=== PATIENT | male | born 1985 | race Caucasian/White ===

== ENCOUNTER 2017-09-26 08:54 | Emergency (ER) | payer OTHER ==
[2017-09-26] MEDS: IPRATRPIUM/ALBUTEROL 0.5/2.5MG 3 ML NEBU. NEB (09:21)
[2017-09-26 09:55] LABS: INFLUENZA A PATIENT POSITIVE (NEGATIVE); INFLUENZA B PATIENT NEGATIVE (NEGATIVE); OBC FLU VALID
== END 2017-09-26 10:21 | disposition home or self-care (01) ==
LOC: ER 10:21
DX: J09.X2 Influenza due to identified novel influenza A virus with other respiratory manifestations (principal)
CPT/HCPCS: 71046; 87804; 87804-59; 94640; 99285-25; J7620

== ENCOUNTER 2021-06-14 04:50 | Inpatient (IN) | payer OTHER ==
[~2021-06-14] VITALS: Ht 185.4 cm; Wt 104.3 kg
[~2021-06-14 04:50] MED LIST: ALBU2.5V8 INH; HYDR5SUS PO; OSEL75CA PO
[2021-06-14 05:18] LABS: BILIRUBIN,URINE NEGATIVE (NEG); CLARITY,URINE CLEAR; COLOR,URINE YELLOW; NITRITE,URINE NEGATIVE (NEG); PH,URINE 6.5 (<5.0-8.0); PROTEIN,URINE NEGATIVE (NEG-TRACE); UROBILINOGEN,URINE 0.2 mg/dL (0.2 mg/dL)
[2021-06-14 05:26] LABS: BACTERIA,URINE 0 /HPF (0-FEW); RBC,URINE 0 /HPF (0-2); WBC,URINE 0 /HPF (0-4)
[2021-06-14] MEDS ORDERED: MORPHINE SULFATE 4 MG/ML INJ. IVP ONE (06:00)
[2021-06-14] MEDS ORDERED: ONDANSETRON PF 4 MG/2 ML VIAL. IVP ONE (06:00)
[2021-06-14] MEDS ORDERED: CONTRAST GIVEN. MC PRN (06:15)
[2021-06-14 06:19] LABS: BASO % 1 % (0-3); EOS # 0.1 x10^3/uL (0.0-0.7); EOS % 1 % (0-3); HEMATOCRIT 40.7 % (39.0-53.0); HEMOGLOBIN 13.9 g/dL (13.0-17.5); LYMPH # 1.5 x10^3/uL (1.0-4.8); LYMPH % 19 % (24-48); MEAN CORPUSCULAR HEMOGLOBIN 29 pg (25-35); MEAN CORPUSCULAR HGB CONC 34 g/dL (31-37); MEAN CORPUSCULAR VOLUME 84 fL (79-100); MONO # 0.9 x10^3/uL (0.0-1.1); MONO % 11 % (0-9); NEUT # 5.2 x10^3/uL (1.8-7.7); NEUT % 68 % (31-73); PLATELET COUNT 188 x10^3/uL (140-400); RED BLOOD COUNT 4.82 x10^6/uL (4.30-5.70); RED CELL DISTRIBUTION WIDTH 13.6 % (11.5-14.5); WHITE BLOOD COUNT 7.7 x10^3/uL (4.0-11.0)
[2021-06-14 06:27] LABS: CREATININE 0.9 mg/dL (0.7-1.3); GFR 96.6
[2021-06-14] MEDS ORDERED: IOHEXOL 300 MG/ML 100ML VIAL. IV ONE (06:30)
[2021-06-14 06:32] LABS: ALBUMIN 3.9 g/dL (3.4-5.0); TOTAL BILIRUBIN 0.6 mg/dL (0.2-1.0); TOTAL PROTEIN 7.8 g/dL (6.4-8.2)
--- NOTE | 2021-06-14 07:07 | RAD ---
CT abdomen pelvis with contrast dated 06/14/2021. No comparison available. CLINICAL INDICATION: Pain. TECHNIQUE: Contiguous axial imaging the abdomen pelvis performed following the intravenous administration of 75 cc Omnipaque 300. One or more of the following individualized dose reduction techniques were utilized for this examinat ion: 1. Automated exposure control 2. Adjustment of the mA and/or kV according to patient size 3. Use of iterative reconstruction technique. FINDINGS: Limited images of lung bases show some mild patchy and linear opacity in the lower lobes, likely atel ectasis. Heart size within normal limits. No pleural or pericardial effusion. The main portal vein is somewhat enlarged and shows lack of contrast enhancement. There are prominent venous collaterals at the lyn hepatis. There is reconstitution of flow at the level of the SMV. Th e splenic vein is patent distally. There is inflammatory stranding adjacent to the pancreatic head an d uncinate process and along the celiac axis and yln hepatis. The pancreatic body and tail are unre markable. No pseudocyst. Liver is homogeneous. No apparent hepatic mass. Gallbladder unremarkable. Spleen is upper limits of n ormal in size. Adrenal glands and kidneys are unremarkable. No hydronephrosis. Unopacified GI tract normal in caliber and contour. No bowel wall thickening. No ascites or lymphaden opathy. The appendix is not clearly identified. No inflammatory changes in the right lower quadrant. Abdominal aorta normal in caliber. 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 Images of the pelvis show nondistended urinary bladder. Prostate gland mildly enlarged. No free fluid or pelvic lymphadenopathy. Bone windows show no acute findings. Multilevel spondylosis. IMPRESSION: 1. Findings consistent with portal vein thrombosis with early cavernous transformation. 2. There is ill-definition of the pancreatic head and uncinate process with inflammatory stranding in the region. This could be edematous changes related to the portal vein thrombosis. Acute pancreatiti s is another consideration. Underlying pancreatic mass cannot be excluded. Correlate with laboratory values. Follow-up imaging recommended. 3. Otherwise no acute findings. 4. Mild patchy bibasilar opacity, likely scar or atelectasis. Electronically signed by: Gurpreet Layne MD (06/14/2021 7:05 AM) [facility]
--- NOTE | 2021-06-14 07:28 | PHYS DOC ---
Past Medical History Past Medical History: Other Additional Past Medical Histor: vp global shunt, heart murmur Past Surgical History: Appendectomy Additional Past Surgical Histo: vp global shunt, hernia, skin graft, TUBES BX EARS Smoking Status: Never Smoker Alcohol Use: Occasionally Drug Use: None General Adult EDM: Chief Complaint: ABDOMINAL PAIN HPI: HPI: Patient is a 35 year old male here with report of 2 weeks of generalized mid and lower abdominal pain, also with diffuse mid to low back pain. The back pain and abdominal pain or not mutually exclusive. He denies any specific injury or trauma. He denies any pain but reports nausea. He denies constipation or diarrhea. He denies urinary symptoms. He denies fever chills or weight loss. Denies chest pain or shortness of breath initially, however later in the ED course he tells me he was short of breath a few weeks ago. This is currently resolved. He also reports history of right lower extremity DVT which sounds like was an unprovoked DVT, was diagnosed by ultrasound. He denies having a thrombophilia work-up. He was treated with Xarelto for a year. This was several years ago, and he is not currently anticoagulated. He has not seen his primary care physician for this pain yet. The pain has worsened over the last 24 hours so he decided to come to the emergency department today. Review of Systems: Review of Systems: Constitutional: Denies fever or chills. [] Eyes: Denies change in visual acuity. [] HENT: Denies nasal congestion or sore throat. [] Respiratory: Denies cough or shortness of breath. [] Cardiovascular: Denies chest pain or edema. [] GI: Reports abdominal pain and nausea. Denies constipation or diarrhea. : Denies urinary symptoms. Musculoskeletal: Generalized back pain. Denies lower extremity pain or joint pain. Integument: Denies rash. [] Neurologic: Denies headache, focal weakness or sensory changes. [] Endocrine: Denies polyuria or polydipsia. [] Lymphatic: Denies swollen glands. [] Psychiatric: Denies depression or anxiety. [] Heart Score: C/O Chest Pain: No Risk Factors: Risk Factors: DM, Current or recent (<one month) smoker, HTN, HLP, family history of CAD, obesity. Risk Scores: Score 0 - 3: 2.5% MACE over next 6 weeks - Discharge Home Score 4 - 6: 20.3% MACE over next 6 weeks - Admit for Clinical Observation Score 7 - 10: 72.7% MACE over next 6 weeks - Early Invasive Strategies Current Medications: Current Medications Medications (Trade) Dose Ordered Sig/Ziyad Start Time Stop Time Status Last Admin Dose Admin Info (CONTRAST GIVEN -- Rx MONITORING) 1 each PRN DAILY PRN 06/14/21 06:15 06/16/21 06:14 Iohexol (Omnipaque 300 Mg/ml) 75 ml 1X ONCE 06/14/21 06:30 06/14/21 06:31 DC 06/14/21 06:47 75 ML Morphine Sulfate (Morphine Sulfate) 4 mg 1X ONCE 06/14/21 06:00 06/14/21 06:01 DC 06/14/21 06:13 4 MG Ondansetron HCl (Zofran) 4 mg 1X ONCE 06/14/21 06:00 06/14/21 06:01 DC 06/14/21 06:13 4 MG Allergies: Allergies: Allergies Coded Allergies Type Severity Reaction Last Updated Verified No Known Drug Allergies 11/26/13 No Physical Exam: PE: Constitutional: Well developed, well nourished, no acute distress, non-toxic appearance. [] HENT: Normocephalic, atraumatic, bilateral external ears normal, oropharynx moist, no oral exudates, nose normal. [] Eyes: PERRLA, EOMI, conjunctiva normal, no discharge. [] Neck: Normal range of motion, no tenderness, supple, no stridor. [] Cardiovascular:Heart rate regular rhythm, no murmur [] Lungs & Thorax: Bilateral breath sounds clear to auscultation [] Abdomen: Bowel sounds normal, soft, no tenderness, no masses, no pulsatile masses. No CVA tenderness. No flank or abdominal ecchymoses. No surgical abdominal findings. Skin: Warm, dry, no erythema, no rash. [] Back: No tenderness, no CVA tenderness. [] Extremities: No tenderness, no cyanosis, no clubbing, ROM intact, no edema. [] Neurologic: Alert and oriented X 3, normal motor function, normal sensory function, no focal deficits noted. [] Psychologic: Affect normal, judgement normal, mood normal. [] Current Patient Data: Labs: Laboratory Tests Test 06/14/21 05:05 06/14/21 06:07 Urine Collection Type Unknown Urine Color Yellow Urine Clarity Clear Urine pH 6.5 (<5.0-8.0) Urine Specific [place] 1.025 (1.000-1.030) Urine Protein Negative mg/dL (NEG-TRACE) Urine Glucose (UA) Negative mg/dL (NEG) Urine Ketones (Stick) Negative mg/dL (NEG) Urine Blood Negative (NEG) Urine Nitrite Negative (NEG) Urine Bilirubin Negative (NEG) Urine Urobilinogen Dipstick 0.2 mg/dL (0.2 mg/dL) Urine Leukocyte Esterase Negative (NEG) Urine RBC 0 /HPF (0-2) Urine WBC 0 /HPF (0-4) Urine Squamous Epithelial Cells Occ /LPF Urine Bacteria 0 /HPF (0-FEW) Urine Mucus Slight /LPF White Blood Count 7.7 x10^3/uL (4.0-11.0) Red Blood Count 4.82 x10^6/uL (4.30-5.70) Hemoglobin 13.9 g/dL (13.0-17.5) Hematocrit 40.7 % (39.0-53.0) Mean Corpuscular Volume 84 fL (79-100) Mean Corpuscular Hemoglobin 29 pg (25-35) Mean Corpuscular Hemoglobin Concent 34 g/dL (31-37) Red Cell Distribution Width 13.6 % (11.5-14.5) Platelet Count 188 x10^3/uL (140-400) Neutrophils (%) (Auto) 68 % (31-73) Lymphocytes (%) (Auto) 19 % (24-48) L Monocytes (%) (Auto) 11 % (0-9) H Eosinophils (%) (Auto) 1 % (0-3) Basophils (%) (Auto) 1 % (0-3) Neutrophils # (Auto) 5.2 x10^3/uL (1.8-7.7) Lymphocytes # (Auto) 1.5 x10^3/uL (1.0-4.8) Monocytes # (Auto) 0.9 x10^3/uL (0.0-1.1) Eosinophils # (Auto) 0.1 x10^3/uL (0.0-0.7) Basophils # (Auto) 0.0 x10^3/uL (0.0-0.2) Sodium Level 134 mmol/L (136-145) L Potassium Level 4.0 mmol/L (3.5-5.1) Chloride Level 101 mmol/L (98-107) Carbon Dioxide Level 28 mmol/L (21-32) Anion Gap 5 (6-14) L Blood Urea Nitrogen 18 mg/dL (8-26) Creatinine 0.9 mg/dL (0.7-1.3) Estimated GFR (Cockcroft-Gault) 96.6 BUN/Creatinine Ratio 20 (6-20) Glucose Level 113 mg/dL (70-99) H Calcium Level 9.0 mg/dL (8.5-10.1) Total Bilirubin 0.6 mg/dL (0.2-1.0) Aspartate Amino Transferase (AST) 39 U/L (15-37) H Alanine Aminotransferase (ALT) 75 U/L (16-63) H Alkaline Phosphatase 92 U/L (46-116) Total Protein 7.8 g/dL (6.4-8.2) Albumin 3.9 g/dL (3.4-5.0) Albumin/Globulin Ratio 1.0 (1.0-1.7) Lipase 43 U/L (73-393) L Laboratory Tests 06/14/21 06:07 Laboratory Tests 06/14/21 06:07 Vital Signs: Vital Signs Date Time Temp Pulse Resp B/P (MAP) Pulse Ox O2 Delivery O2 Flow Rate FiO2 06/14/21 06:24 84 13 134/78 (96) 93 Room Air 06/14/21 05:00 98.5 98.5 EKG: EKG: [] Radiology/Procedures: Radiology/Procedures: IMAGING REPORT Signed PATIENT: CHARLIE COLLINS ACCOUNT: [id number] : 1985 LOCATION: ER AGE: 35 SEX: M EXAM STATUS: REG ER ORD. PHYSICIAN: LEONARD MITCHELL DO REASON: abdominal pain, back pain PROCEDURE: CT ABD PELV W/ IV CONTRST ONLY CT abdomen pelvis with contrast dated 06/14/2021. No comparison available. CLINICAL INDICATION: Pain. TECHNIQUE: Contiguous axial imaging the abdomen pelvis performed following the intravenous administration of 75 cc Omnipaque 300. One or more of the following individualized dose reduction techniques were utilized for this examination: 1. Automated exposure control 2. Adjustment of the mA and/or kV according to patient size 3. Use of iterative reconstruction technique. FINDINGS: Limited images of lung bases show some mild patchy and linear opacity in the lower lobes, likely atelectasis. Heart size within normal limits. No pleural or pericardial effusion. The main portal vein is somewhat enlarged and shows lack of contrast enhancement. There are prominent venous collaterals at the lyn hepatis. There is reconstitution of flow at the level of the SMV. The splenic vein is patent distally. There is inflammatory stranding adjacent to the pancreatic head and uncinate process and along the celiac axis and lyn hepatis. The pancreatic body and tail are unremarkable. No pseudocyst. Liver is homogeneous. No apparent hepatic mass. Gallbladder unremarkable. Spleen is upper limits of normal in size. Adrenal glands and kidneys are unremarkable. No hydronephrosis. Unopacified GI tract normal in caliber and contour. No bowel wall thickening. No ascites or lymphadenopathy. The appendix is not clearly identified. No inflammatory changes in the right lower quadrant. Abdominal aorta normal in caliber. 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 Images of the pelvis show nondistended urinary bladder. Prostate gland mildly enlarged. No free fluid or pelvic lymphadenopathy. Bone windows show no acute findings. Multilevel spondylosis. IMPRESSION: 1. Findings consistent with portal vein thrombosis with early cavernous transformation. 2. There is ill-definition of the pancreatic head and uncinate process with inflammatory stranding in the region. This could be edematous changes related to the portal vein thrombosis. Acute pancreatitis is another consideration. Underlying pancreatic mass cannot be excluded. Correlate with laboratory values. Follow-up imaging recommended. 3. Otherwise no acute findings. 4. Mild patchy bibasilar opacity, likely scar or atelectasis. Electronically signed by: Gurpreet Layne MD (06/14/2021 7:05 AM) [facility] [place] and SIGNED BY: GURPREET LAYNE MD Course & Med Decision Making: Course & Med Decision Making Pertinent Labs and Imaging studies reviewed. (See chart for details) Patient is given IV morphine for pain. He is resting much more comfortably. He reports he still uncomfortable, but declines further pain medicine at this time. I have ordered IV heparin. I discussed the findings, differential diagnosis and plan of care with the patient. I suspect strongly that he has an underlying thrombophilia, and may very well require lifelong anticoagulation. I have explained my recommendation for admission. He will need to see hematology services urgently. He is comfortable with the plan for admission. He is accepted for admission by Dr. Saleem. Fernando Disclaimer: Fernando Disclaimer: This electronic medical record was generated, in whole or in part, using a voice recognition dictation system. Departure Departure Impression: Primary Impression: Portal vein thrombosis Additional Impressions: Generalized abdominal pain Back pain Disposition: ADMITTED INPATIENT Admitting Physician: DAINA Condition: STABLE Referrals: MOLLY VORA (PCP) LEONARD MITCHELL DO Jun 14, 2021 07:28
[2021-06-14] MEDS ORDERED: HEPARIN for IV BOLUS 10,000 UNIT/10 ML VIAL. IV ONE (07:30)
[2021-06-14] MEDS ORDERED: IV NORMAL SALINE 1000ML BAG 1,000 ML IV ONE (08:15)
[2021-06-14] MEDS ORDERED: ONDANSETRON PF 4 MG/2 ML VIAL. IVP PRN ×2 (08:15→13:30)
[2021-06-14] MEDS: MORPHINE SULFATE 4 MG/ML INJ. IVP PRN ×2 (08:17→11:26)
[2021-06-14] MEDS: HEPARIN 25,000UTS/250ML PREMIX 250 ML IV PRN ×2 (08:33→22:13)
--- NOTE | 2021-06-14 09:27 | PDOC1 ---
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 Patient had abdominal pain couple weeks ago that resolved spontaneously. There are no exacerbating or alleviating factors. Denies any weight loss, nausea vomiting, dysuria, hematuria, hematemesis, fevers or chills. He does endorse some chest pain that happened a couple weeks ago and resolved spontaneously as well. Denies any palpitations or syncope. His history of his DVT he thought might have been provoked by wrestling. He did have a tender calf pain at the time. He was treated for Xarelto for a year and stopped. He has not been anticoagulated since that time. Past Medical/Surgical History: PMH/PSH: Past Medical History: global vp creative + content marketing shunt, heart murmur Past Surgical History: Appendectomy, global vp creative + content marketing shunt, hernia, skin graft, TUBES BX EARS Allergies: Allergies: Coded Allergies: No Known Drug Allergies (Unverified , 11/26/13) Family History: Family History: Reviewed with no relevant findings. No history of clotting or bleeding disorders in the family, no strokes or diabetes or heart disease. Social History: Social History: Smoking Status: Never Smoker Alcohol Use: Occasionally Drug Use: None Current Medications: Current Medications Current Medications Morphine Sulfate (Morphine Sulfate) 4 mg 1X ONCE IVP Last administered on 06/14/21at 06:13; Start 06/14/21 at 06:00; Stop 06/14/21 at 06:01; Status DC Ondansetron HCl (Zofran) 4 mg 1X ONCE IVP Last administered on 06/14/21at 06:13; Start 06/14/21 at 06:00; Stop 06/14/21 at 06:01; Status DC Iohexol (Omnipaque 300 Mg/ml) 75 ml 1X ONCE IV Last administered on 06/14/21at 06:47; Start 06/14/21 at 06:30; Stop 06/14/21 at 06:31; Status DC Info (CONTRAST GIVEN -- Rx MONITORING) 1 each PRN DAILY PRN MC SEE COMMENTS; Start 06/14/21 at 06:15; Stop 06/16/21 at 06:14 Heparin Sodium (Porcine) (Heparin Sodium) 4,000 unit 1X ONCE IV Last administered on 06/14/21at 08:22; Start 06/14/21 at 07:30; Stop 06/14/21 at 07:37; Status DC Ondansetron HCl (Zofran) 4 mg PRN Q8HRS PRN IVP NAUSEA/VOMITING; Start 06/14/21 at 08:15; Stop 06/15/21 at 08:14 Morphine Sulfate (Morphine Sulfate) 4 mg PRN Q2HR PRN IVP PAIN Last administered on 06/14/21at 08:17; Start 06/14/21 at 08:15; Stop 06/15/21 at 08:14 Fentanyl Citrate (Fentanyl 2ml Vial) 50 mcg PRN Q1HR PRN IVP PAIN; Start 06/14/21 at 08:15; Stop 06/15/21 at 08:14 Sodium Chloride 1,000 ml @ 100 mls/hr 1X ONCE IV Last administered on 06/14/21at 08:15; Start 06/14/21 at 08:15; Stop 06/14/21 at 18:14 Heparin Sodium/ Dextrose 250 ml @ 17.44 mls/ hr CONT PRN IV SEE I/O RECORD Last administered on 06/14/21at 08:33; Start 06/14/21 at 08:07 Active Scripts Active Hydrocodone-Chlorpheniram Susp (Hydrocodone/Chlorphen Polis) 5 Ml Mervat.er.12h 5 Ml PO PRN Q12HR PRN Proair Hfa Inhaler (Albuterol Sulfate) 8.5 Gm Hfa.aer.ad 1 Puff INH PRN Q6HRS PRN Tamiflu (Oseltamivir Phosphate) 75 Mg Capsule 1 Cap PO BID ROS: Review of Systems Review of System REVIEW OF SYSTEMS: GENERAL: Denies weakness SKIN: No bruising, hair changes or rashes. EYES: No blurred, double or loss of vision. NOSE AND THROAT: No history of nosebleeds, hoarseness or sore throat. HEART: No history of palpitations, chest pain or shortness of breath on exertion. LUNGS: Denies cough, hemoptysis, wheezing or shortness of breath. GASTROINTESTINAL: Positive for abdominal pain and low back pain GENITOURINARY: No history of frequency, urgency, hesitancy or nocturia. NEUROLOGIC: Denies history of numbness, tingling, or tremor. PSYCHIATRIC: No history of panic, anxiety or depression. ENDOCRINE: No history of heat or cold intolerance, polyuria or polydipsia. EXTREMITIES: Denies joint pain, pain on walking or stiffness. Physical Exam: Vital Signs: Vital Signs Date Time Temp Pulse Resp B/P (MAP) Pulse Ox O2 Delivery O2 Flow Rate FiO2 06/14/21 08:17 16 95 Room Air 06/14/21 07:52 82 146/98 (114) 06/14/21 05:00 98.5 98.5 Physcial Exam: General: Well developed, well nourished, no acute distress, well appearing HEENT: Pupils equally round and reactive to light, EOMI, no discharge, normal conjunctiva Neck: Supple, no nuchal rigidity, no JVD, trachea midline, no tenderness Cardiac: RRR, no murmurs, no gallops, no rubs Chest/Lungs: CTAB, no wheeze, no rhonchi, no crackles Abdomen: soft, non-distended, no guarding, no peritoneal signs, non-tender Back: No tenderness Extremities: no edema, pulses intact, non-tender,capillary refill <3 sec bilateral upper and lower extremities, Neuro: Alert and oriented x 4, no focal deficits, normal speech Labs: Labs: Laboratory Tests Test 06/14/21 05:05 06/14/21 06:07 Urine Collection Type Unknown Urine Color Yellow Urine Clarity Clear Urine pH 6.5 (<5.0-8.0) Urine Specific [place] 1.025 (1.000-1.030) Urine Protein Negative mg/dL (NEG-TRACE) Urine Glucose (UA) Negative mg/dL (NEG) Urine Ketones (Stick) Negative mg/dL (NEG) Urine Blood Negative (NEG) Urine Nitrite Negative (NEG) Urine Bilirubin Negative (NEG) Urine Urobilinogen Dipstick 0.2 mg/dL (0.2 mg/dL) Urine Leukocyte Esterase Negative (NEG) Urine RBC 0 /HPF (0-2) Urine WBC 0 /HPF (0-4) Urine Squamous Epithelial Cells Occ /LPF Urine Bacteria 0 /HPF (0-FEW) Urine Mucus Slight /LPF White Blood Count 7.7 x10^3/uL (4.0-11.0) Red Blood Count 4.82 x10^6/uL (4.30-5.70) Hemoglobin 13.9 g/dL (13.0-17.5) Hematocrit 40.7 % (39.0-53.0) Mean Corpuscular Volume 84 fL (79-100) Mean Corpuscular Hemoglobin 29 pg (25-35) Mean Corpuscular Hemoglobin Concent 34 g/dL (31-37) Red Cell Distribution Width 13.6 % (11.5-14.5) Platelet Count 188 x10^3/uL (140-400) Neutrophils (%) (Auto) 68 % (31-73) Lymphocytes (%) (Auto) 19 % (24-48) Monocytes (%) (Auto) 11 % (0-9) Eosinophils (%) (Auto) 1 % (0-3) Basophils (%) (Auto) 1 % (0-3) Neutrophils # (Auto) 5.2 x10^3/uL (1.8-7.7) Lymphocytes # (Auto) 1.5 x10^3/uL (1.0-4.8) Monocytes # (Auto) 0.9 x10^3/uL (0.0-1.1) Eosinophils # (Auto) 0.1 x10^3/uL (0.0-0.7) Basophils # (Auto) 0.0 x10^3/uL (0.0-0.2) Sodium Level 134 mmol/L (136-145) Potassium Level 4.0 mmol/L (3.5-5.1) Chloride Level 101 mmol/L (98-107) Carbon Dioxide Level 28 mmol/L (21-32) Anion Gap 5 (6-14) Blood Urea Nitrogen 18 mg/dL (8-26) Creatinine 0.9 mg/dL (0.7-1.3) Estimated GFR (Cockcroft-Gault) 96.6 BUN/Creatinine Ratio 20 (6-20) Glucose Level 113 mg/dL (70-99) Calcium Level 9.0 mg/dL (8.5-10.1) Total Bilirubin 0.6 mg/dL (0.2-1.0) Aspartate Amino Transf (AST/SGOT) 39 U/L (15-37) Alanine Aminotransferase (ALT/SGPT) 75 U/L (16-63) Alkaline Phosphatase 92 U/L (46-116) Total Protein 7.8 g/dL (6.4-8.2) Albumin 3.9 g/dL (3.4-5.0) Albumin/Globulin Ratio 1.0 (1.0-1.7) Lipase 43 U/L (73-393) Laboratory Tests Test 06/14/21 05:05 06/14/21 06:07 Urine Collection Type Unknown Urine Color Yellow Urine Clarity Clear Urine pH 6.5 (<5.0-8.0) Urine Specific [place] 1.025 (1.000-1.030) Urine Protein Negative mg/dL (NEG-TRACE) Urine Glucose (UA) Negative mg/dL (NEG) Urine Ketones (Stick) Negative mg/dL (NEG) Urine Blood Negative (NEG) Urine Nitrite Negative (NEG) Urine Bilirubin Negative (NEG) Urine Urobilinogen Dipstick 0.2 mg/dL (0.2 mg/dL) Urine Leukocyte Esterase Negative (NEG) Urine RBC 0 /HPF (0-2) Urine WBC 0 /HPF (0-4) Urine Squamous Epithelial Cells Occ /LPF Urine Bacteria 0 /HPF (0-FEW) Urine Mucus Slight /LPF White Blood Count 7.7 x10^3/uL (4.0-11.0) Red Blood Count 4.82 x10^6/uL (4.30-5.70) Hemoglobin 13.9 g/dL (13.0-17.5) Hematocrit 40.7 % (39.0-53.0) Mean Corpuscular Volume 84 fL (79-100) Mean Corpuscular Hemoglobin 29 pg (25-35) Mean Corpuscular Hemoglobin Concent 34 g/dL (31-37) Red Cell Distribution Width 13.6 % (11.5-14.5) Platelet Count 188 x10^3/uL (140-400) Neutrophils (%) (Auto) 68 % (31-73) Lymphocytes (%) (Auto) 19 % (24-48) Monocytes (%) (Auto) 11 % (0-9) Eosinophils (%) (Auto) 1 % (0-3) Basophils (%) (Auto) 1 % (0-3) Neutrophils # (Auto) 5.2 x10^3/uL (1.8-7.7) Lymphocytes # (Auto) 1.5 x10^3/uL (1.0-4.8) Monocytes # (Auto) 0.9 x10^3/uL (0.0-1.1) Eosinophils # (Auto) 0.1 x10^3/uL (0.0-0.7) Basophils # (Auto) 0.0 x10^3/uL (0.0-0.2) Sodium Level 134 mmol/L (136-145) Potassium Level 4.0 mmol/L (3.5-5.1) Chloride Level 101 mmol/L (98-107) Carbon Dioxide Level 28 mmol/L (21-32) Anion Gap 5 (6-14) Blood Urea Nitrogen 18 mg/dL (8-26) Creatinine 0.9 mg/dL (0.7-1.3) Estimated GFR (Cockcroft-Gault) 96.6 BUN/Creatinine Ratio 20 (6-20) Glucose Level 113 mg/dL (70-99) Calcium Level 9.0 mg/dL (8.5-10.1) Total Bilirubin 0.6 mg/dL (0.2-1.0) Aspartate Amino Transf (AST/SGOT) 39 U/L (15-37) Alanine Aminotransferase (ALT/SGPT) 75 U/L (16-63) Alkaline Phosphatase 92 U/L (46-116) Total Protein 7.8 g/dL (6.4-8.2) Albumin 3.9 g/dL (3.4-5.0) Albumin/Globulin Ratio 1.0 (1.0-1.7) Lipase 43 U/L (73-393) Images: Images PROCEDURE: CT ABD PELV W/ IV CONTRST ONLY IMPRESSION: 1. Findings consistent with portal vein thrombosis with early cavernous transformation. 2. There is ill-definition of the pancreatic head and uncinate process with inflammatory stranding in the region. This could be edematous changes related to the portal vein thrombosis. Acute pancreatitis is another consideration. Underlying pancreatic mass cannot be excluded. Correlate with laboratory values. Follow-up imaging recommended. 3. Otherwise no acute findings. 4. Mild patchy bibasilar opacity, likely scar or atelectasis. Assessment/Plan Assessment/Plan Acute abdominal pain secondary to portal vein thrombosis, possible pancreatitis Transaminitis Mild hyponatremia Obesity class I History of cerebral palsy, mild no obvious focal deficits Admit to hospitalist service for further management Vascular surgery consult Pending EKG and troponins Continue heparin drip Pending lipid panel Continue heparin drip for DVT prophylaxis Protonix GI prophylaxis ADA diet CODE STATUS full Discussed with RN and SW Disposition inpatient management as above DPOA: Melly Nettles, parent Justifications for Admission Other Justification SOPHIE MARQUEZ MD Jun 14, 2021 09:27
[2021-06-14] MEDS: fentaNYL PF VIAL 100 MCG/2 ML VIAL IVP PRN ×2 (09:52→13:50)
[2021-06-14 10:30] VITALS: BP 136/90
[2021-06-14 11:16] LABS: C-REACTIVE PROTEIN 64.7 mg/L (0-3.3)
[2021-06-14 11:18] LABS: CHOLESTEROL/HDL RATIO 4.8
[2021-06-14] MEDS ORDERED: DOCUSATE SODIUM 100 MG CAPSULE. PO PRN (13:30)
[2021-06-14] MEDS ORDERED: ACETAMINOPHEN 325 MG TABLET. PO PRN (13:30)
[2021-06-14] MEDS ORDERED: PROCHLORPERAZINE 10 MG/2 ML VIAL. IV PRN (13:30)
[2021-06-14] MEDS ORDERED: DEXTROSE 50% 25 GM / 50ML DISP.SYRIN. IV PRN (13:30)
[2021-06-14] MEDS ORDERED: MORPHINE SULFATE 2 MG/ML INJ. IV PRN (13:30)
[2021-06-14 15:00] VITALS: BP 129/87
[2021-06-14] MEDS: HYDROcodone/APAP 5/325MG 1 TAB TABLET PO PRN ×2 (16:10→22:05)
[2021-06-14] MEDS ORDERED: HEPARIN for IV BOLUS 10,000 UNIT/10 ML VIAL. IV PRN ×2 (18:00)
[2021-06-14 19:41] VITALS: BP 130/88
[2021-06-14] MEDS: MORPHINE SULFATE 2 MG/ML INJ. IVP PRN ×2 (19:54→23:22)
[2021-06-14] MEDS: ZOLPIDEM 5 MG TABLET. PO PRN (22:05)
[2021-06-14] MEDS: LORazepam 0.5 MG TABLET PO PRN (22:05)
[2021-06-14 23:12] VITALS: BP 133/89
[2021-06-15 03:50] VITALS: BP 115/82
[2021-06-15] MEDS: MORPHINE SULFATE 2 MG/ML INJ. IVP PRN ×3 (04:13→08:56)
[2021-06-15 04:20] LABS: BASO % 0 % (0-3); EOS # 0.1 x10^3/uL (0.0-0.7); EOS % 1 % (0-3); HEMATOCRIT 39.8 % (39.0-53.0); HEMOGLOBIN 13.7 g/dL (13.0-17.5); LYMPH # 2.2 x10^3/uL (1.0-4.8); LYMPH % 23 % (24-48); MEAN CORPUSCULAR HEMOGLOBIN 30 pg (25-35); MEAN CORPUSCULAR HGB CONC 34 g/dL (31-37); MEAN CORPUSCULAR VOLUME 86 fL (79-100); MONO # 1.4 x10^3/uL (0.0-1.1); MONO % 14 % (0-9); NEUT # 6.2 x10^3/uL (1.8-7.7); NEUT % 62 % (31-73); PLATELET COUNT 185 x10^3/uL (140-400); RED BLOOD COUNT 4.64 x10^6/uL (4.30-5.70); RED CELL DISTRIBUTION WIDTH 13.4 % (11.5-14.5); WHITE BLOOD COUNT 9.9 x10^3/uL (4.0-11.0)
[2021-06-15 05:14] LABS: CALCIUM 8.7 mg/dL (8.5-10.1); GFR 85.5; MAGNESIUM 2.3 mg/dL (1.8-2.4); PHOSPHORUS 3.6 mg/dL (2.6-4.7); POTASSIUM 3.9 mmol/L (3.5-5.1)
[2021-06-15 07:00] VITALS: BP 127/75
[2021-06-15] MEDS: HYDROcodone/APAP 5/325MG 1 TAB TABLET PO PRN (10:11)
[2021-06-15] MEDS: APIXABAN 5 MG TABLET. PO SCH ×2 (10:11→20:55)
[2021-06-15 11:00] VITALS: BP 142/95
--- NOTE | 2021-06-15 11:15 | NUR ---
PATIENT ALERT AND VERBALLY RESPONSIVE, MOTHER AT THE BEDSIDE, PATIENT VOICED C/O CHEST PAIN (NEW ONSET) DESCRIBES PRESSURE AND TIGHTNESS, WILL INFORM MD AND ORDER STAT EKG AT THIS TIME.
--- NOTE | 2021-06-15 11:31 | PDOC ---
[employer] PROGRESS NOTE Date of Service DOS: DATE: 06/15/21 TIME: 11:25 Chief Complaint Chief Complaint Acute abdominal pain secondary to portal vein thrombosis, possible pancreatitis Transaminitis Mild hyponatremia Obesity class I History of cerebral palsy, mild no obvious focal deficits Pending repeat liver enzymes Vascular surgery consult Pending EKG and troponins Continue heparin drip, will transition to Eliquis today if there is no planned procedures in the next 24 hours. Pending lipid panel Continue heparin drip for DVT prophylaxis Protonix GI prophylaxis ADA diet CODE STATUS full Discussed with RN and SW Disposition inpatient management as above DPOA: Melly Nettles, parent History of Present Illness History of Present Illness 35-year-old male with past medical history of right DVT, [employer] shunt, 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 Patient had abdominal pain couple weeks ago that resolved spontaneously. There are no exacerbating or alleviating factors. Denies any weight loss, nausea vomiting, dysuria, hematuria, hematemesis, fevers or chills. He does endorse some chest pain that happened a couple weeks ago and resolved spontaneously as well. Denies any palpitations or syncope. His history of his DVT he thought might have been provoked by wrestling. He did have a tender calf pain at the time. He was treated for Xarelto for a year and stopped. He has not been anticoagulated since that time. 06/15/2021 No acute events overnight. Patient continues to have abdominal pain and e pigastric tenderness upon my exam. Patient required morphine this morning and has not had breakfast yet due to abdominal pain. Denies any bloody stools are given a bowel movement yet. Patient also complained of chest pain which I obtained an EKG this morning without any acute ST elevations or troponins that were elevated. We will plan to keep patient another day for pain control and general surgery evaluation. I will order a abdominal ultrasound duplex to evaluate flow through the portal vein. Note, lactic acid is normal. Of note, I have also discussed the case with vascular surgery they had recommended a general surgery consult because there was no surgical intervention from their standpoint except possibly stenting which can be done with interventional radiology. Vitals/I&O Vitals/I&O: Vital Signs Date Time Temp Pulse Resp B/P (MAP) Pulse Ox O2 Delivery O2 Flow Rate FiO2 06/15/21 10:11 19 93 Room Air 06/15/21 07:00 98.1 105 127/75 (92) 98.1 I & O 06/14/21 06/14/21 06/15/21 15:00 23:00 07:00 Intake Total 560 ml Output Total 725 ml Balance -725 ml 560 ml Physical Exam General: Alert, Oriented X3, Cooperative Heart: Regular rate Lungs: Clear Abdomen: Other (Epigastric tenderness) Skin: No significant lesion Labs Labs: Laboratory Tests Test 06/14/21 14:35 06/14/21 21:48 06/15/21 03:20 Heparin Anti-Xa Act, Unfractionated 0.22 IU/mL (0.30-0.70) 0.46 IU/mL (0.30-0.70) 0.40 IU/mL (0.30-0.70) White Blood Count 9.9 x10^3/uL (4.0-11.0) Red Blood Count 4.64 x10^6/uL (4.30-5.70) Hemoglobin 13.7 g/dL (13.0-17.5) Hematocrit 39.8 % (39.0-53.0) Mean Corpuscular Volume 86 fL (79-100) Mean Corpuscular Hemoglobin 30 pg (25-35) Mean Corpuscular Hemoglobin Concent 34 g/dL (31-37) Red Cell Distribution Width 13.4 % (11.5-14.5) Platelet Count 185 x10^3/uL (140-400) Neutrophils (%) (Auto) 62 % (31-73) Lymphocytes (%) (Auto) 23 % (24-48) Monocytes (%) (Auto) 14 % (0-9) Eosinophils (%) (Auto) 1 % (0-3) Basophils (%) (Auto) 0 % (0-3) Neutrophils # (Auto) 6.2 x10^3/uL (1.8-7.7) Lymphocytes # (Auto) 2.2 x10^3/uL (1.0-4.8) Monocytes # (Auto) 1.4 x10^3/uL (0.0-1.1) Eosinophils # (Auto) 0.1 x10^3/uL (0.0-0.7) Basophils # (Auto) 0.0 x10^3/uL (0.0-0.2) Sodium Level 136 mmol/L (136-145) Potassium Level 3.9 mmol/L (3.5-5.1) Chloride Level 100 mmol/L (98-107) Carbon Dioxide Level 27 mmol/L (21-32) Anion Gap 9 (6-14) Blood Urea Nitrogen 17 mg/dL (8-26) Creatinine 1.0 mg/dL (0.7-1.3) Estimated GFR (Cockcroft-Gault) 85.5 Glucose Level 105 mg/dL (70-99) Calcium Level 8.7 mg/dL (8.5-10.1) Phosphorus Level 3.6 mg/dL (2.6-4.7) Magnesium Level 2.3 mg/dL (1.8-2.4) Assessment and Plan Assessmemt and Plan Problems Medical Problems: (1) Back pain Status: Acute (2) Generalized abdominal pain Status: Acute (3) Portal vein thrombosis Status: Acute Comment Review of Relevant I have reviewed the following items eva (where applicable) has been applied. Medications: Current Medications Medications (Trade) Dose Ordered Sig/Ziyad Route PRN Reason Start Time Stop Time Status Last Admin Dose Admin Lorazepam (Ativan) 0.5 mg PRN Q6HRS PRN PO ANXIETY / AGITATION 06/14/21 13:30 06/14/21 22:05 Acetaminophen/ Hydrocodone Bitart (Lortab 5/325) 1 tab PRN Q4HRS PRN PO MODERATE PAIN 4-6 06/14/21 13:30 06/15/21 10:11 Morphine Sulfate (Morphine Sulfate) 2 mg PRN Q2HR PRN IVP SEVERE PAIN 7-10 06/14/21 13:30 06/15/21 13:29 06/15/21 08:56 Zolpidem Tartrate (Ambien) 2.5 mg PRN QHS PRN PO INSOMNIA 06/14/21 13:30 06/14/21 22:05 Heparin Sodium (Porcine) (Heparin Sodium) 1,550 unit PRN Q6HRS PRN IV FOR UFH LEVEL 0.2 - 0.29 06/14/21 18:00 06/15/21 08:21 DC 06/14/21 18:14 Apixaban (Eliquis) 10 mg BID PO 06/15/21 09:00 06/21/21 21:01 06/15/21 10:11 Justifications for Admission Other Justification Portal vein thrombosis SOPHIE MARQUEZ MD Jun 15, 2021 11:31
[2021-06-15 12:11] LABS: ALBUMIN 3.6 g/dL (3.4-5.0); DIRECT BILIRUBIN 0.2 mg/dL (0.0-0.2); TOTAL BILIRUBIN 0.8 mg/dL (0.2-1.0); TOTAL PROTEIN 7.5 g/dL (6.4-8.2)
[2021-06-15] MEDS: IV NORMAL SALINE 1000ML BAG 1,000 ML IV SCH (13:30)
[2021-06-15] MEDS ORDERED: NALOXONE 0.4 MG/ML VIAL. IV PRN (13:30)
--- NOTE | 2021-06-15 13:47 | PDOC2 ---
CONSULT Date of Consult Date of Consult DATE: 06/15/21 TIME: 13:41 Reason for Consult Reason for Consult: Portal vein thrombosis/abd pain Current Problem List Problem List Problems Medical Problems: (1) Back pain Status: Acute (2) Generalized abdominal pain Status: Acute (3) Portal vein thrombosis Status: Acute Current Medications Current Medications Current Medications Morphine Sulfate (Morphine Sulfate) 4 mg 1X ONCE IVP Last administered on 06/14/21at 06:13; Start 06/14/21 at 06:00; Stop 06/14/21 at 06:01; Status DC Ondansetron HCl (Zofran) 4 mg 1X ONCE IVP Last administered on 06/14/21at 06:13; Start 06/14/21 at 06:00; Stop 06/14/21 at 06:01; Status DC Iohexol (Omnipaque 300 Mg/ml) 75 ml 1X ONCE IV Last administered on 06/14/21at 06:47; Start 06/14/21 at 06:30; Stop 06/14/21 at 06:31; Status DC Info (CONTRAST GIVEN -- Rx MONITORING) 1 each PRN DAILY PRN MC SEE COMMENTS; Start 06/14/21 at 06:15; Stop 06/16/21 at 06:14 Heparin Sodium (Porcine) (Heparin Sodium) 4,000 unit 1X ONCE IV Last administered on 06/14/21at 08:22; Start 06/14/21 at 07:30; Stop 06/14/21 at 07:37; Status DC Ondansetron HCl (Zofran) 4 mg PRN Q8HRS PRN IVP NAUSEA/VOMITING; Start 06/14/21 at 08:15; Stop 06/14/21 at 13:47; Status DC Morphine Sulfate (Morphine Sulfate) 4 mg PRN Q2HR PRN IVP PAIN Last administered on 06/14/21at 11:26; Start 06/14/21 at 08:15; Stop 06/14/21 at 13:48; Status DC Fentanyl Citrate (Fentanyl 2ml Vial) 50 mcg PRN Q1HR PRN IVP PAIN Last administered on 06/14/21at 13:50; Start 06/14/21 at 08:15; Stop 06/15/21 at 08:14; Status DC Sodium Chloride 1,000 ml @ 100 mls/hr 1X ONCE IV Last administered on 06/14/21at 08:15; Start 06/14/21 at 08:15; Stop 06/14/21 at 18:14; Status DC Heparin Sodium/ Dextrose 250 ml @ 17.44 mls/ hr CONT PRN IV SEE I/O RECORD Last administered on 06/14/21at 22:13; Start 06/14/21 at 08:07; Stop 06/15/21 at 08:21; Status DC Sennosides (Senna) 17.2 mg PRN BID PRN PO CONSTIPATION; Start 06/14/21 at 13:30 Docusate Sodium (Colace) 100 mg PRN DAILY PRN PO HARD STOOLS; Start 06/14/21 at 13:30 Ondansetron HCl (Zofran) 4 mg PRN Q6HRS PRN IVP NAUSEA/VOMITING, 1st CHOICE; Start 06/14/21 at 13:30 Dextrose (Dextrose 50%-Water Syringe) 12.5 gm PRN Q15MIN PRN IV SEE COMMENTS; Start 06/14/21 at 13:30 Acetaminophen (Tylenol) 650 mg PRN Q4HRS PRN PO TEMP OVER 100.4F OR MILD PAIN; Start 06/14/21 at 13:30 Lorazepam (Ativan) 0.5 mg PRN Q6HRS PRN PO ANXIETY / AGITATION Last administered on 06/14/21at 22:05; Start 06/14/21 at 13:30 Lorazepam (Ativan Inj) 0.25 mg PRN Q4HRS PRN IV ANXIETY / AGITATION; Start 06/14/21 at 13:30 Acetaminophen/ Hydrocodone Bitart (Lortab 5/325) 1 tab PRN Q4HRS PRN PO MODERATE PAIN 4-6 Last administered on 06/15/21at 10:11; Start 06/14/21 at 13:30 Morphine Sulfate (Morphine Sulfate) 1 mg PRN Q1HR PRN IV PAIN; Start 06/14/21 at 13:30; Stop 06/15/21 at 13:26; Status DC Morphine Sulfate (Morphine Sulfate) 2 mg PRN Q2HR PRN IVP SEVERE PAIN 7-10 Last administered on 06/15/21at 08:56; Start 06/14/21 at 13:30; Stop 06/15/21 at 13:26; Status DC Prochlorperazine Edisylate (Compazine) 10 mg PRN Q6HRS PRN IV NAUSEA/VOMITING, 2nd CHOICE; Start 06/14/21 at 13:30 Zolpidem Tartrate (Ambien) 2.5 mg PRN QHS PRN PO INSOMNIA Last administered on 06/14/21at 22:05; Start 06/14/21 at 13:30 Heparin Sodium (Porcine) (Heparin Sodium) 3,150 unit PRN Q6HRS PRN IV FOR UFH LEVEL LESS THAN 0.2; Start 06/14/21 at 18:00; Stop 06/15/21 at 08:21; Status DC Heparin Sodium (Porcine) (Heparin Sodium) 1,550 unit PRN Q6HRS PRN IV FOR UFH LEVEL 0.2 - 0.29 Last administered on 06/14/21at 18:14; Start 06/14/21 at 18:00; Stop 06/15/21 at 08:21; Status DC Apixaban (Eliquis) 10 mg BID PO Last administered on 06/15/21at 10:11; Start 06/15/21 at 09:00; Stop 06/21/21 at 21:01 Apixaban (Eliquis) 5 mg BID PO ; Start 06/22/21 at 09:00 Naloxone HCl (Narcan) 0.4 mg PRN Q2MIN PRN IV SEE INSTRUCTIONS; Start 06/15/21 at 13:30 Sodium Chloride 1,000 ml @ 25 mls/hr Q24H IV ; Start 06/15/21 at 13:30 Morphine Sulfate 30 ml @ 0 mls/hr CONT PRN PRN IV PER PROTOCOL; Start 06/15/21 at 13:30 Potassium Chloride/Dextrose/ Sod Cl 1,000 ml @ 100 mls/hr Q10H IV ; Start 06/15/21 at 13:30 Active Scripts Active Hydrocodone-Chlorpheniram Susp (Hydrocodone/Chlorphen Polis) 5 Ml Mervat.er.12h 5 Ml PO PRN Q12HR PRN Proair Hfa Inhaler (Albuterol Sulfate) 8.5 Gm Hfa.aer.ad 1 Puff INH PRN Q6HRS PRN Tamiflu (Oseltamivir Phosphate) 75 Mg Capsule 1 Cap PO BID Allergies Allergies: Coded Allergies: No Known Drug Allergies (Unverified , 11/26/13) Vitals VITALS Vital Signs Date Time Temp Pulse Resp B/P (MAP) Pulse Ox O2 Delivery O2 Flow Rate FiO2 06/15/21 10:50 20 94 Room Air 06/15/21 07:00 98.1 105 127/75 (92) 98.1 Labs Labs Laboratory Tests Test 06/14/21 05:05 06/14/21 06:07 06/14/21 10:39 06/14/21 14:35 Urine Collection Type Unknown Urine Color Yellow Urine Clarity Clear Urine pH 6.5 (<5.0-8.0) Urine Specific [facility] 1.025 (1.000-1.030) Urine Protein Negative mg/dL (NEG-TRACE) Urine Glucose (UA) Negative mg/dL (NEG) Urine Ketones (Stick) Negative mg/dL (NEG) Urine Blood Negative (NEG) Urine Nitrite Negative (NEG) Urine Bilirubin Negative (NEG) Urine Urobilinogen Dipstick 0.2 mg/dL (0.2 mg/dL) Urine Leukocyte Esterase Negative (NEG) Urine RBC 0 /HPF (0-2) Urine WBC 0 /HPF (0-4) Urine Squamous Epithelial Cells Occ /LPF Urine Bacteria 0 /HPF (0-FEW) Urine Mucus Slight /LPF White Blood Count 7.7 x10^3/uL (4.0-11.0) Red Blood Count 4.82 x10^6/uL (4.30-5.70) Hemoglobin 13.9 g/dL (13.0-17.5) Hematocrit 40.7 % (39.0-53.0) Mean Corpuscular Volume 84 fL (79-100) Mean Corpuscular Hemoglobin 29 pg (25-35) Mean Corpuscular Hemoglobin Concent 34 g/dL (31-37) Red Cell Distribution Width 13.6 % (11.5-14.5) Platelet Count 188 x10^3/uL (140-400) Neutrophils (%) (Auto) 68 % (31-73) Lymphocytes (%) (Auto) 19 % (24-48) Monocytes (%) (Auto) 11 % (0-9) Eosinophils (%) (Auto) 1 % (0-3) Basophils (%) (Auto) 1 % (0-3) Neutrophils # (Auto) 5.2 x10^3/uL (1.8-7.7) Lymphocytes # (Auto) 1.5 x10^3/uL (1.0-4.8) Monocytes # (Auto) 0.9 x10^3/uL (0.0-1.1) Eosinophils # (Auto) 0.1 x10^3/uL (0.0-0.7) Basophils # (Auto) 0.0 x10^3/uL (0.0-0.2) Sodium Level 134 mmol/L (136-145) Potassium Level 4.0 mmol/L (3.5-5.1) Chloride Level 101 mmol/L (98-107) Carbon Dioxide Level 28 mmol/L (21-32) Anion Gap 5 (6-14) Blood Urea Nitrogen 18 mg/dL (8-26) Creatinine 0.9 mg/dL (0.7-1.3) Estimated GFR (Cockcroft-Gault) 96.6 BUN/Creatinine Ratio 20 (6-20) Glucose Level 113 mg/dL (70-99) Calcium Level 9.0 mg/dL (8.5-10.1) Total Bilirubin 0.6 mg/dL (0.2-1.0) Aspartate Amino Transf (AST/SGOT) 39 U/L (15-37) Alanine Aminotransferase (ALT/SGPT) 75 U/L (16-63) Alkaline Phosphatase 92 U/L (46-116) Troponin I Quantitative < 0.017 ng/mL (0.000-0.055) C-Reactive Protein, Quantitative 64.7 mg/L (0-3.3) Total Protein 7.8 g/dL (6.4-8.2) Albumin 3.9 g/dL (3.4-5.0) Albumin/Globulin Ratio 1.0 (1.0-1.7) Triglycerides Level 68 mg/dL (0-150) Cholesterol Level 140 mg/dL (0-200) LDL Cholesterol, Calculated 97 mg/dL (0-100) VLDL Cholesterol, Calculated 14 mg/dL (0-40) Non-HDL Cholesterol Calculated 111 mg/dL (0-129) HDL Cholesterol 29 mg/dL (40-60) Cholesterol/HDL Ratio 4.8 Lipase 43 U/L (73-393) Lactic Acid Level 0.7 mmol/L (0.4-2.0) Heparin Anti-Xa Act, Unfractionated 0.22 IU/mL (0.30-0.70) Test 06/14/21 21:48 06/15/21 03:20 Heparin Anti-Xa Act, Unfractionated 0.46 IU/mL (0.30-0.70) 0.40 IU/mL (0.30-0.70) White Blood Count 9.9 x10^3/uL (4.0-11.0) Red Blood Count 4.64 x10^6/uL (4.30-5.70) Hemoglobin 13.7 g/dL (13.0-17.5) Hematocrit 39.8 % (39.0-53.0) Mean Corpuscular Volume 86 fL (79-100) Mean Corpuscular Hemoglobin 30 pg (25-35) Mean Corpuscular Hemoglobin Concent 34 g/dL (31-37) Red Cell Distribution Width 13.4 % (11.5-14.5) Platelet Count 185 x10^3/uL (140-400) Neutrophils (%) (Auto) 62 % (31-73) Lymphocytes (%) (Auto) 23 % (24-48) Monocytes (%) (Auto) 14 % (0-9) Eosinophils (%) (Auto) 1 % (0-3) Basophils (%) (Auto) 0 % (0-3) Neutrophils # (Auto) 6.2 x10^3/uL (1.8-7.7) Lymphocytes # (Auto) 2.2 x10^3/uL (1.0-4.8) Monocytes # (Auto) 1.4 x10^3/uL (0.0-1.1) Eosinophils # (Auto) 0.1 x10^3/uL (0.0-0.7) Basophils # (Auto) 0.0 x10^3/uL (0.0-0.2) Sodium Level 136 mmol/L (136-145) Potassium Level 3.9 mmol/L (3.5-5.1) Chloride Level 100 mmol/L (98-107) Carbon Dioxide Level 27 mmol/L (21-32) Anion Gap 9 (6-14) Blood Urea Nitrogen 17 mg/dL (8-26) Creatinine 1.0 mg/dL (0.7-1.3) Estimated GFR (Cockcroft-Gault) 85.5 Glucose Level 105 mg/dL (70-99) Calcium Level 8.7 mg/dL (8.5-10.1) Phosphorus Level 3.6 mg/dL (2.6-4.7) Magnesium Level 2.3 mg/dL (1.8-2.4) Total Bilirubin 0.8 mg/dL (0.2-1.0) Direct Bilirubin 0.2 mg/dL (0.0-0.2) Aspartate Amino Transf (AST/SGOT) 23 U/L (15-37) Alanine Aminotransferase (ALT/SGPT) 59 U/L (16-63) Alkaline Phosphatase 80 U/L (46-116) Total Protein 7.5 g/dL (6.4-8.2) Albumin 3.6 g/dL (3.4-5.0) Laboratory Tests Test 06/14/21 14:35 06/14/21 21:48 06/15/21 03:20 Heparin Anti-Xa Act, Unfractionated 0.22 IU/mL (0.30-0.70) 0.46 IU/mL (0.30-0.70) 0.40 IU/mL (0.30-0.70) White Blood Count 9.9 x10^3/uL (4.0-11.0) Red Blood Count 4.64 x10^6/uL (4.30-5.70) Hemoglobin 13.7 g/dL (13.0-17.5) Hematocrit 39.8 % (39.0-53.0) Mean Corpuscular Volume 86 fL (79-100) Mean Corpuscular Hemoglobin 30 pg (25-35) Mean Corpuscular Hemoglobin Concent 34 g/dL (31-37) Red Cell Distribution Width 13.4 % (11.5-14.5) Platelet Count 185 x10^3/uL (140-400) Neutrophils (%) (Auto) 62 % (31-73) Lymphocytes (%) (Auto) 23 % (24-48) Monocytes (%) (Auto) 14 % (0-9) Eosinophils (%) (Auto) 1 % (0-3) Basophils (%) (Auto) 0 % (0-3) Neutrophils # (Auto) 6.2 x10^3/uL (1.8-7.7) Lymphocytes # (Auto) 2.2 x10^3/uL (1.0-4.8) Monocytes # (Auto) 1.4 x10^3/uL (0.0-1.1) Eosinophils # (Auto) 0.1 x10^3/uL (0.0-0.7) Basophils # (Auto) 0.0 x10^3/uL (0.0-0.2) Sodium Level 136 mmol/L (136-145) Potassium Level 3.9 mmol/L (3.5-5.1) Chloride Level 100 mmol/L (98-107) Carbon Dioxide Level 27 mmol/L (21-32) Anion Gap 9 (6-14) Blood Urea Nitrogen 17 mg/dL (8-26) Creatinine 1.0 mg/dL (0.7-1.3) Estimated GFR (Cockcroft-Gault) 85.5 Glucose Level 105 mg/dL (70-99) Calcium Level 8.7 mg/dL (8.5-10.1) Phosphorus Level 3.6 mg/dL (2.6-4.7) Magnesium Level 2.3 mg/dL (1.8-2.4) Total Bilirubin 0.8 mg/dL (0.2-1.0) Direct Bilirubin 0.2 mg/dL (0.0-0.2) Aspartate Amino Transf (AST/SGOT) 23 U/L (15-37) Alanine Aminotransferase (ALT/SGPT) 59 U/L (16-63) Alkaline Phosphatase 80 U/L (46-116) Total Protein 7.5 g/dL (6.4-8.2) Albumin 3.6 g/dL (3.4-5.0) Assessment/Plan Assessment/Plan Abd pain- with portal vein thrombosis with cavernous transformation and history of DVTs. Plan hematology work-up for factor deficiencies watermaster anticoagulation recommended IgG4/AFP/CA 19-9 levels Full ntoe dictated SARKIS SINGLETON MD Jun 15, 2021 13:47
[2021-06-15] MEDS: MORPHINE SULFATE 30 ML IV PRN (14:57)
[2021-06-15 15:00] VITALS: BP 149/98
--- NOTE | 2021-06-15 19:26 | RAD ---
EXAM: Liver Doppler. HISTORY: Portal vein thrombosis. COMPARISON: 06/14/2021. FINDINGS: Grayscale and Doppler analysis of the hepatic vasculature was performed. The main portal vein is occluded. There is no internal flow. The right portal vein is not well visual ized and is thrombosed on CT. The left portal vein is thrombosed proximally on CT but patent more dis tally with normal direction of flow. The main, right and left and hepatic veins are patent. The splenic vein is patent. There is an elevated peak systolic velocity within the hepatic artery at 342 cm/s. The resistive inde x is low at 0.45. IMPRESSION: 1. [place] appearing thrombus within the main, right and proximal left portal vein. Electronically signed by: Adis Garcia MD (06/15/2021 7:24 PM) [facility]
--- NOTE | 2021-06-15 19:27 | PDOC2 ---
CONSULT Date of Consult Date of Consult DATE: 06/15/21 TIME: 19:16 Reason for Consult Reason for Consult: portal vein thrombosis Referring Physician Referring Physician: Dr. Saleem Identification/Chief Complaint Chief Complaint abd pain Source Source: Chart review, Patient History of Present Illness Reason for Visit: 35 yo M with c/o abd pain, about a week. Has gradually been feeling poorly over the past several weeks. Associated loose stools, but no bleeding. Hx of DVT of RLE of unknown cause. Was on anticoagulation, but not currently. Pt with c/o diffuse abd pain. No N/V. 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) Past Surgical History Past Surgical History: Appendectomy Family History Family History: No Significant (no hx of clotting disorders) Social History No ALCOHOL: none Current Problem List Problem List Problems Medical Problems: (1) Back pain Status: Acute (2) Generalized abdominal pain Status: Acute (3) Portal vein thrombosis Status: Acute Current Medications Current Medications Current Medications Morphine Sulfate (Morphine Sulfate) 4 mg 1X ONCE IVP Last administered on 06/14/21at 06:13; Start 06/14/21 at 06:00; Stop 06/14/21 at 06:01; Status DC Ondansetron HCl (Zofran) 4 mg 1X ONCE IVP Last administered on 06/14/21at 06:13; Start 06/14/21 at 06:00; Stop 06/14/21 at 06:01; Status DC Iohexol (Omnipaque 300 Mg/ml) 75 ml 1X ONCE IV Last administered on 06/14/21at 06:47; Start 06/14/21 at 06:30; Stop 06/14/21 at 06:31; Status DC Info (CONTRAST GIVEN -- Rx MONITORING) 1 each PRN DAILY PRN MC SEE COMMENTS; Start 06/14/21 at 06:15; Stop 06/16/21 at 06:14 Heparin Sodium (Porcine) (Heparin Sodium) 4,000 unit 1X ONCE IV Last administered on 06/14/21at 08:22; Start 06/14/21 at 07:30; Stop 06/14/21 at 07:37; Status DC Ondansetron HCl (Zofran) 4 mg PRN Q8HRS PRN IVP NAUSEA/VOMITING; Start 06/14/21 at 08:15; Stop 06/14/21 at 13:47; Status DC Morphine Sulfate (Morphine Sulfate) 4 mg PRN Q2HR PRN IVP PAIN Last administered on 06/14/21at 11:26; Start 06/14/21 at 08:15; Stop 06/14/21 at 13: 48; Status DC Fentanyl Citrate (Fentanyl 2ml Vial) 50 mcg PRN Q1HR PRN IVP PAIN Last administered on 06/14/21at 13:50; Start 06/14/21 at 08:15; Stop 06/15/21 at 08:14; Status DC Sodium Chloride 1,000 ml @ 100 mls/hr 1X ONCE IV Last administered on at 08:15; Start 06/14/21 at 08:15; Stop 06/14/21 at 18:14; Status DC Heparin Sodium/ Dextrose 250 ml @ 17.44 mls/ hr CONT PRN IV SEE I/O RECORD Last administered on 06/14/21at 22:13; Start 06/14/21 at 08:07; Stop 06/15/21 at 08:21; Status DC Sennosides (Senna) 17.2 mg PRN BID PRN PO CONSTIPATION; Start 06/14/21 at 13:30 Docusate Sodium (Colace) 100 mg PRN DAILY PRN PO HARD STOOLS; Start 06/14/21 at 13:30 Ondansetron HCl (Zofran) 4 mg PRN Q6HRS PRN IVP NAUSEA/VOMITING, 1st CHOICE; Start 06/14/21 at 13:30 Dextrose (Dextrose 50%-Water Syringe) 12.5 gm PRN Q15MIN PRN IV SEE COMMENTS; Start 06/14/21 at 13:30 Acetaminophen (Tylenol) 650 mg PRN Q4HRS PRN PO TEMP OVER 100.4F OR MILD PAIN; Start 06/14/21 at 13:30 Lorazepam (Ativan) 0.5 mg PRN Q6HRS PRN PO ANXIETY / AGITATION Last administered on 06/14/21at 22:05; Start 06/14/21 at 13:30 Lorazepam (Ativan Inj) 0.25 mg PRN Q4HRS PRN IV ANXIETY / AGITATION; Start 06/14/21 at 13:30 Acetaminophen/ Hydrocodone Bitart (Lortab 5/325) 1 tab PRN Q4HRS PRN PO MOD ERATE PAIN 4-6 Last administered on 06/15/21at 10:11; Start 06/14/21 at 13:30 Morphine Sulfate (Morphine Sulfate) 1 mg PRN Q1HR PRN IV PAIN; Start 06/14/21 at 13:30; Stop 06/15/21 at 13:26; Status DC Morphine Sulfate (Morphine Sulfate) 2 mg PRN Q2HR PRN IVP SEVERE PAIN 7-10 Last administered on 06/15/21at 08:56; Start 06/14/21 at 13:30; Stop 06/15/21 at 13:26; Status DC Prochlorperazine Edisylate (Compazine) 10 mg PRN Q6HRS PRN IV NAUSEA/VOMITING, 2nd CHOICE; Start 06/14/21 at 13:30 Zolpidem Tartrate (Ambien) 2.5 mg PRN QHS PRN PO INSOMNIA Last administered on 06/14/21at 22:05; Start 06/14/21 at 13:30 Heparin Sodium (Porcine) (Heparin Sodium) 3,150 unit PRN Q6HRS PRN IV FOR UFH LEVEL LESS THAN 0.2; Start 06/14/21 at 18:00; Stop 06/15/21 at 08:21; Status DC Heparin Sodium (Porcine) (Heparin Sodium) 1,550 unit PRN Q6HRS PRN IV FOR UFH LEVEL 0.2 - 0.29 Last administered on 06/14/21at 18:14; Start 06/14/21 at 18:00; Stop 06/15/21 at 08:21; Status DC Apixaban (Eliquis) 10 mg BID PO Last administered on 06/15/21at 10:11; Start 06/15/21 at 09:00; Stop 06/21/21 at 21:01 Apixaban (Eliquis) 5 mg BID PO ; Start 06/22/21 at 09:00 Naloxone HCl (Narcan) 0.4 mg PRN Q2MIN PRN IV SEE INSTRUCTIONS; Start 06/15/21 at 13:30 Sodium Chloride 1,000 ml @ 25 mls/hr Q24H IV Last administered on 06/15/21at 13:30; Start 06/15/21 at 13:30 Morphine Sulfate 30 ml @ 0 mls/hr CONT PRN PRN IV PER PROTOCOL Last administered on 06/15/21at 14:57; Start 06/15/21 at 13:30 Potassium Chloride/Dextrose/ Sod Cl 1,000 ml @ 100 mls/hr Q10H IV ; Start 06/15/21 at 13:30 Active Scripts Active Hydrocodone-Chlorpheniram Susp (Hydrocodone/Chlorphen Polis) 5 Ml Mervat.er.12h 5 Ml PO PRN Q12HR PRN Proair Hfa Inhaler (Albuterol Sulfate) 8.5 Gm Hfa.aer.ad 1 Puff INH PRN Q6HRS PRN Tamiflu (Oseltamivir Phosphate) 75 Mg Capsule 1 Cap PO BID Allergies Allergies: Coded Allergies: No Known Drug Allergies (Unverified , 11/26/13) ROS Gastrointestinal: Yes Abdominal Pain Physical Exam General: Alert, Oriented X3, Cooperative, mild distress HEENT: Atraumatic, Other (mild dysconjugate gaze) Abdomen: Soft, Other (diffuse TTP) Extremities: No clubbing, No cyanosis Skin: No rashes, No breakdown Psych/Mental Status: Mental status NL, Mood NL Vitals VITALS Vital Signs Date Time Temp Pulse Resp B/P (MAP) Pulse Ox O2 Delivery O2 Flow Rate FiO2 06/15/21 15:00 99.2 102 18 149/98 (115) 92 Room Air 99.2 Labs Labs Laboratory Tests Test 06/14/21 05:05 06/14/21 06:07 06/14/21 10:39 06/14/21 14:35 Urine Collection Type Unknown Urine Color Yellow Urine Clarity Clear Urine pH 6.5 (<5.0-8.0) Urine Specific [place] 1.025 (1.000-1.030) Urine Protein Negative mg/dL (NEG-TRACE) Urine Glucose (UA) Negative mg/dL (NEG) Urine Ketones (Stick) Negative mg/dL (NEG) Urine Blood Negative (NEG) Urine Nitrite Negative (NEG) Urine Bilirubin Negative (NEG) Urine Urobilinogen Dipstick 0.2 mg/dL (0.2 mg/dL) Urine Leukocyte Esterase Negative (NEG) Urine RBC 0 /HPF (0-2) Urine WBC 0 /HPF (0-4) Urine Squamous Epithelial Cells Occ /LPF Urine Bacteria 0 /HPF (0-FEW) Urine Mucus Slight /LPF White Blood Count 7.7 x10^3/uL (4.0-11.0) Red Blood Count 4.82 x10^6/uL (4.30-5.70) Hemoglobin 13.9 g/dL (13.0-17.5) Hematocrit 40.7 % (39.0-53.0) Mean Corpuscular Volume 84 fL (79-100) Mean Corpuscular Hemoglobin 29 pg (25-35) Mean Corpuscular Hemoglobin Concent 34 g/dL (31-37) Red Cell Distribution Width 13.6 % (11.5-14.5) Platelet Count 188 x10^3/uL (140-400) Neutrophils (%) (Auto) 68 % (31-73) Lymphocytes (%) (Auto) 19 % (24-48) Monocytes (%) (Auto) 11 % (0-9) Eosinophils (%) (Auto) 1 % (0-3) Basophils (%) (Auto) 1 % (0-3) Neutrophils # (Auto) 5.2 x10^3/uL (1.8-7.7) Lymphocytes # (Auto) 1.5 x10^3/uL (1.0-4.8) Monocytes # (Auto) 0.9 x10^3/uL (0.0-1.1) Eosinophils # (Auto) 0.1 x10^3/uL (0.0-0.7) Basophils # (Auto) 0.0 x10^3/uL (0.0-0.2) Sodium Level 134 mmol/L (136-145) Potassium Level 4.0 mmol/L (3.5-5.1) Chloride Level 101 mmol/L (98-107) Carbon Dioxide Level 28 mmol/L (21-32) Anion Gap 5 (6-14) Blood Urea Nitrogen 18 mg/dL (8-26) Creatinine 0.9 mg/dL (0.7-1.3) Estimated GFR (Cockcroft-Gault) 96.6 BUN/Creatinine Ratio 20 (6-20) Glucose Level 113 mg/dL (70-99) Calcium Level 9.0 mg/dL (8.5-10.1) Total Bilirubin 0.6 mg/dL (0.2-1.0) Aspartate Amino Transf (AST/SGOT) 39 U/L (15-37) Alanine Aminotransferase (ALT/SGPT) 75 U/L (16-63) Alkaline Phosphatase 92 U/L (46-116) Troponin I Quantitative < 0.017 ng/mL (0.000-0.055) C-Reactive Protein, Quantitative 64.7 mg/L (0-3.3) Total Protein 7.8 g/dL (6.4-8.2) Albumin 3.9 g/dL (3.4-5.0) Albumin/Globulin Ratio 1.0 (1.0-1.7) Triglycerides Level 68 mg/dL (0-150) Cholesterol Level 140 mg/dL (0-200) LDL Cholesterol, Calculated 97 mg/dL (0-100) VLDL Cholesterol, Calculated 14 mg/dL (0-40) Non-HDL Cholesterol Calculated 111 mg/dL (0-129) HDL Cholesterol 29 mg/dL (40-60) Cholesterol/HDL Ratio 4.8 Lipase 43 U/L (73-393) Lactic Acid Level 0.7 mmol/L (0.4-2.0) Heparin Anti-Xa Act, Unfractionated 0.22 IU/mL (0.30-0.70) Test 06/14/21 21:48 06/15/21 03:20 Heparin Anti-Xa Act, Unfractionated 0.46 IU/mL (0.30-0.70) 0.40 IU/mL (0.30-0.70) White Blood Count 9.9 x10^3/uL (4.0-11.0) Red Blood Count 4.64 x10^6/uL (4.30-5.70) Hemoglobin 13.7 g/dL (13.0-17.5) Hematocrit 39.8 % (39.0-53.0) Mean Corpuscular Volume 86 fL (79-100) Mean Corpuscular Hemoglobin 30 pg (25-35) Mean Corpuscular Hemoglobin Concent 34 g/dL (31-37) Red Cell Distribution Width 13.4 % (11.5-14.5) Platelet Count 185 x10^3/uL (140-400) Neutrophils (%) (Auto) 62 % (31-73) Lymphocytes (%) (Auto) 23 % (24-48) Monocytes (%) (Auto) 14 % (0-9) Eosinophils (%) (Auto) 1 % (0-3) Basophils (%) (Auto) 0 % (0-3) Neutrophils # (Auto) 6.2 x10^3/uL (1.8-7.7) Lymphocytes # (Auto) 2.2 x10^3/uL (1.0-4.8) Monocytes # (Auto) 1.4 x10^3/uL (0.0-1.1) Eosinophils # (Auto) 0.1 x10^3/uL (0.0-0.7) Basophils # (Auto) 0.0 x10^3/uL (0.0-0.2) Sodium Level 136 mmol/L (136-145) Potassium Level 3.9 mmol/L (3.5-5.1) Chloride Level 100 mmol/L (98-107) Carbon Dioxide Level 27 mmol/L (21-32) Anion Gap 9 (6-14) Blood Urea Nitrogen 17 mg/dL (8-26) Creatinine 1.0 mg/dL (0.7-1.3) Estimated GFR (Cockcroft-Gault) 85.5 Glucose Level 105 mg/dL (70-99) Calcium Level 8.7 mg/dL (8.5-10.1) Phosphorus Level 3.6 mg/dL (2.6-4.7) Magnesium Level 2.3 mg/dL (1.8-2.4) Total Bilirubin 0.8 mg/dL (0.2-1.0) Direct Bilirubin 0.2 mg/dL (0.0-0.2) Aspartate Amino Transf (AST/SGOT) 23 U/L (15-37) Alanine Aminotransferase (ALT/SGPT) 59 U/L (16-63) Alkaline Phosphatase 80 U/L (46-116) Total Protein 7.5 g/dL (6.4-8.2) Albumin 3.6 g/dL (3.4-5.0) Laboratory Tests Test 06/14/21 21:48 06/15/21 03:20 Heparin Anti-Xa Act, Unfractionated 0.46 IU/mL (0.30-0.70) 0.40 IU/mL (0.30-0.70) White Blood Count 9.9 x10^3/uL (4.0-11.0) Red Blood Count 4.64 x10^6/uL (4.30-5.70) Hemoglobin 13.7 g/dL (13.0-17.5) Hematocrit 39.8 % (39.0-53.0) Mean Corpuscular Volume 86 fL (79-100) Mean Corpuscular Hemoglobin 30 pg (25-35) Mean Corpuscular Hemoglobin Concent 34 g/dL (31-37) Red Cell Distribution Width 13.4 % (11.5-14.5) Platelet Count 185 x10^3/uL (140-400) Neutrophils (%) (Auto) 62 % (31-73) Lymphocytes (%) (Auto) 23 % (24-48) Monocytes (%) (Auto) 14 % (0-9) Eosinophils (%) (Auto) 1 % (0-3) Basophils (%) (Auto) 0 % (0-3) Neutrophils # (Auto) 6.2 x10^3/uL (1.8-7.7) Lymphocytes # (Auto) 2.2 x10^3/uL (1.0-4.8) Monocytes # (Auto) 1.4 x10^3/uL (0.0-1.1) Eosinophils # (Auto) 0.1 x10^3/uL (0.0-0.7) Basophils # (Auto) 0.0 x10^3/uL (0.0-0.2) Sodium Level 136 mmol/L (136-145) Potassium Level 3.9 mmol/L (3.5-5.1) Chloride Level 100 mmol/L (98-107) Carbon Dioxide Level 27 mmol/L (21-32) Anion Gap 9 (6-14) Blood Urea Nitrogen 17 mg/dL (8-26) Creatinine 1.0 mg/dL (0.7-1.3) Estimated GFR (Cockcroft-Gault) 85.5 Glucose Level 105 mg/dL (70-99) Calcium Level 8.7 mg/dL (8.5-10.1) Phosphorus Level 3.6 mg/dL (2.6-4.7) Magnesium Level 2.3 mg/dL (1.8-2.4) Total Bilirubin 0.8 mg/dL (0.2-1.0) Direct Bilirubin 0.2 mg/dL (0.0-0.2) Aspartate Amino Transf (AST/SGOT) 23 U/L (15-37) Alanine Aminotransferase (ALT/SGPT) 59 U/L (16-63) Alkaline Phosphatase 80 U/L (46-116) Total Protein 7.5 g/dL (6.4-8.2) Albumin 3.6 g/dL (3.4-5.0) Images Images CT with c/o PV thrombosis with collaterals, no obvious bowel compromise Assessment/Plan Assessment/Plan PV thrombosis agree with anticoagulants will ask IR to comment, but suspect chronic and probably not able to clear appreciate GI involvement, may need to evaluate for bleeding if develops issues, but none currently. will ask hematology to evaluate for causes of coagulopathy. no immediate surgical plans. Thanks for consult! CARLO ORTIZ MD Jun 15, 2021 19:27
[2021-06-15 19:48] VITALS: BP 141/94
[2021-06-15] MEDS: POTASSIUM CL 20MEQ D5-0.45NACL 1,000 ML IV SCH (20:54)
--- NOTE | 2021-06-15 21:29 | CONS ---
DATE OF CONSULTATION: 06/15/2021 GI CONSULTATION REASON FOR CONSULTATION: Abdominal pain, portal vein thrombosis and possible pancreatitis. HISTORY OF PRESENT ILLNESS: A 35-year-old male whose past medical history is significant for DVTs and PSYCHOLOGY LECTURER shunt is admitted to [facility] with worsening abdominal pain, which has been present for the past several weeks. It has lessened for approximately a week and has come back. Subsequent imaging has revealed portal vein thrombosis, early cavernous transformation as well as ill definition of the pancreatic head and uncinate process. The patient does drink alcohol on occasion. Denies any shortness of breath at this time and is without new complaints. PAST MEDICAL HISTORY: Status post appendectomy, PSYCHOLOGY LECTURER shunt, hernia skin graft, history of cerebral palsy. ALLERGIES: None. MEDICATIONS: Presently include Eliquis, morphine, naloxone, zolpidem. SOCIAL HISTORY: He works in [employer] shops. Nonsmoker. Social drinker. FAMILY HISTORY: Noncontributory for DVTs. REVIEW OF SYSTEMS: Per records. PHYSICAL EXAMINATION: VITAL SIGNS: Temp is 96, pulse is 105, respiratory rate 16, blood pressure 127/75, room air is 94%. HEENT: Reveals normocephalic, atraumatic head. Pupils and extraocular muscles not tested. Sclerae are anicteric. NECK: Supple. LUNGS: Clear. CARDIOVASCULAR: Reveals S1 and S2, without S3, S4 or appreciable murmur. ABDOMEN: Reveals a soft abdomen, normal bowel sounds, without appreciable hepatosplenomegaly. There is mild epigastric tenderness to deep palpation. EXTREMITIES: Reveals no cyanosis, clubbing or edema. LABORATORY STUDIES: Sodium 136, potassium 3.8, chloride 100, bicarb 27, BUN 17, creatinine 1.0. Total bili 0.8, direct bili 0.2, AST 20, ALT 59, alk phos of 59. Triglycerides is 65. Hemoglobin 13.7, hematocrit 38.8, white count 8.9 and platelet count is 185,000. 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 Hematologic workup for malignancy and coagulation deficiencies are recommended. 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 He will proceed with an alpha-fetoprotein level, CA 19-9 level and IgG4 level to assess further for pancreatitis and other cause of malignancy. RAN/APRIL/YUSUF DR: [place] TID: [id number]
[2021-06-15 23:21] VITALS: BP 132/85
[2021-06-16 03:39] VITALS: BP 130/87
[2021-06-16] MEDS: MORPHINE SULFATE 30 ML IV PRN ×2 (05:44→22:17)
[2021-06-16 07:00] VITALS: BP 132/88
[2021-06-16 08:47] LABS: BASO % 0 % (0-3); EOS # 0.1 x10^3/uL (0.0-0.7); EOS % 1 % (0-3); HEMATOCRIT 41.5 % (39.0-53.0); LYMPH # 1.8 x10^3/uL (1.0-4.8); LYMPH % 19 % (24-48); MEAN CORPUSCULAR HEMOGLOBIN 29 pg (25-35); MEAN CORPUSCULAR HGB CONC 34 g/dL (31-37); MEAN CORPUSCULAR VOLUME 86 fL (79-100); MONO # 1.4 x10^3/uL (0.0-1.1); MONO % 15 % (0-9); NEUT # 6.2 x10^3/uL (1.8-7.7); NEUT % 65 % (31-73); PLATELET COUNT 212 x10^3/uL (140-400); RED BLOOD COUNT 4.84 x10^6/uL (4.30-5.70); RED CELL DISTRIBUTION WIDTH 13.4 % (11.5-14.5); WHITE BLOOD COUNT 9.5 x10^3/uL (4.0-11.0)
--- NOTE | 2021-06-16 09:04 | PDOC2 ---
Consult: IR Brief Consult S: 35 yo with hx of GENERATOR MAN shunt and prior DVT now presents with several weeks of wo rsening abdominal pain and acute portal vein thrombosis with very early cavernous transformation. No n/v. Was not taking anticoagulants at presentation but is currently on Eliquis. O: No imaging or laboratory evidence of bowel ischemia, mesenteric varices or liver dysfunction. Inflammatory stranding around the PV and pancreas is likely secondary to PVT, however underlying pancreatic pathology cannot be excluded. A: Acute PVT, unprovoked, with evidence of early cavernous transformation. Recommendations: 1. Lifetime anticoagulation given multiple episodes of VTE, at least one unprovoked. Recommend 3 weeks of LMWH followed by transition to DOAC of choice, as LMWH is known to have better anti-inflammatory properties which empirically seems to confer some additional benefit in acute/subacute thrombosis. 2. Hematology referral for hypercoaguability workup. Likely will need to be deferred and/or repeated in 6 months upon clinical resolution of acute phase DVT. 3. Follow-up MRI of the abdomen in 3 - 6 months to exclude underlying pancreatic pathology Thank you for the opportunity to assist in this patient's care. ANIKET JOY MD Jun 16, 2021 09:04
[2021-06-16 09:19] LABS: CALCIUM 9.1 mg/dL (8.5-10.1); CREATININE 0.9 mg/dL (0.7-1.3); GFR 96.6; MAGNESIUM 2.3 mg/dL (1.8-2.4); POTASSIUM 3.6 mmol/L (3.5-5.1)
[2021-06-16] MEDS: APIXABAN 5 MG TABLET. PO SCH ×2 (10:13→22:16)
[2021-06-16] MEDS ORDERED: POLYETHYLENE GLYCOL 3350 17 GM PACKET. PO PRN (10:30)
--- NOTE | 2021-06-16 10:53 | NUR ---
SW following. Discussed with RN, pt from home, room air, regular diet. Pt on a DIAMOND GRADER currently. Multiple consults following. RN advised no SW needs at this time. SW will continue to follow.
[2021-06-16 11:00] VITALS: BP 133/94
--- NOTE | 2021-06-16 11:37 | PDOC ---
Date of Service: DATE: 06/16/21 TIME: 11:28 Subjective: Subjective: Ate something from [employer] for breakfast, ongoing abd pain - using NEPHROLOGY NURSE. Walking around helped to pass gas yesterday. No stool since Fri. No vomiting. Family asks if he could try Miralax. Objective: Objective: IgG, CA19-9, AFP pending. Reviewed IR note - Recommendations: 1. Lifetime anticoagulation given multiple episodes of VTE, at least one un provoked. Recommend 3 weeks of LMWH followed by transition to DOAC of choice, as LMWH is known to have better anti-inflammatory properties which empirically seems to confer some additional benefit in acute/subacute thrombosis. 2. Hematology referral for hypercoaguability workup. Likely will need to be deferred and/or repeated in 6 months upon clinical resolution of acute phase DVT. 3. Follow-up MRI of the abdomen in 3 - 6 months to exclude underlying pancreatic pathology Vital Signs: Vital Signs Date Time Temp Pulse Resp B/P (MAP) Pulse Ox O2 Delivery O2 Flow Rate FiO2 06/16/21 11:00 98.1 110 18 133/94 (107) 94 Room Air 98.1 Labs: Laboratory Tests Test 06/16/21 08:10 White Blood Count 9.5 x10^3/uL Red Blood Count 4.84 x10^6/uL Hemoglobin 14.0 g/dL Hematocrit 41.5 % Mean Corpuscular Volume 86 fL Mean Corpuscular Hemoglobin 29 pg Mean Corpuscular Hemoglobin Concent 34 g/dL Red Cell Distribution Width 13.4 % Platelet Count 212 x10^3/uL Neutrophils (%) (Auto) 65 % Lymphocytes (%) (Auto) 19 % Monocytes (%) (Auto) 15 % Eosinophils (%) (Auto) 1 % Basophils (%) (Auto) 0 % Neutrophils # (Auto) 6.2 x10^3/uL Lymphocytes # (Auto) 1.8 x10^3/uL Monocytes # (Auto) 1.4 x10^3/uL Eosinophils # (Auto) 0.1 x10^3/uL Basophils # (Auto) 0.0 x10^3/uL Heparin Anti-Xa Act, Unfractionated > 1.10 IU/mL Sodium Level 134 mmol/L Potassium Level 3.6 mmol/L Chloride Level 97 mmol/L Carbon Dioxide Level 28 mmol/L Anion Gap 9 Blood Urea Nitrogen 11 mg/dL Creatinine 0.9 mg/dL Estimated GFR (Cockcroft-Gault) 96.6 Glucose Level 105 mg/dL Calcium Level 9.1 mg/dL Magnesium Level 2.3 mg/dL Imaging: CT A/P IMPRESSION: 1. Findings consistent with portal vein thrombosis with early cavernous transformation. 2. There is ill-definition of the pancreatic head and uncinate process with inflammatory stranding in the region. This could be edematous changes related to the portal vein thrombosis. Acute pancreatitis is another consideration. Underlying pancreatic mass cannot be excluded. Correlate with laboratory values. Follow-up imaging recommended. 3. Otherwise no acute findings. 4. Mild patchy bibasilar opacity, likely scar or atelectasis. Abd US IMPRESSION: 1. Bryan appearing thrombus within the main, right and proximal left portal vein. PE: GEN: NAD - resting in chair LUNGS: clear anteriorly HEART: tachycardic ABD: ?mild distention, a few tinkling BS NEURO/PSYCH: A & O 3 A/P: PVT - on Eliquis Abnormal CT - ill-definition of the pancreatic head and uncinate process with inflammatory stranding in the region (could be edematous changes related to the portal vein thrombosis vs acute pancreatitis vs underlying mass) Abd pain, constipation -- Eating regular diet w/ ongoing abdominal pain requiring pain pump. Try Miralax as d/w family, consider additional help for constipation if indicated. Await pending labs. Will review any additional GI recs w/ Dr. Lin. Justicifation of Admission Dx: Justifications for Admission: Justification of Admission Dx: Yes MARGE WILLIAM Jun 16, 2021 11:37
[2021-06-16] MEDS: POTASSIUM CL 20MEQ D5-0.45NACL 1,000 ML IV SCH ×3 (12:34→22:44)
--- NOTE | 2021-06-16 12:51 | PDOC ---
[facility] PROGRESS NOTE Date of Service DOS: DATE: 06/16/21 TIME: 12:48 Chief Complaint Chief Complaint Acute abdominal pain secondary to portal vein thrombosis, possible pancreatitis Transaminitis Mild hyponatremia Obesity class I History of cerebral palsy, mild no obvious focal deficits H/o RLE DVT Pending repeat liver enzymes Vascular surgery consult Pending EKG and troponins Continue heparin drip, will transition to Eliquis today if there is no planned procedures in the next 24 hours. 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 Patient had abdominal pain couple weeks ago that resolved spontaneously. There are no exacerbating or alleviating factors. Denies any weight loss, nausea vomiting, dysuria, hematuria, hematemesis, fevers or chills. He does endorse some chest pain that happened a couple weeks ago and resolved spontaneously as well. Denies any palpitations or syncope. His history of his DVT he thought might have been provoked by wrestling. He did have a tender calf pain at the time. He was treated for Xarelto for a year and stopped. He has not been anticoagulated since that time. 06/15: No acute events overnight. Patient continues to have abdominal pain and epigastric tenderness upon my exam. Patient required morphine this morning and has not had breakfast yet due to abdominal pain. Denies any bloody stools are given a bowel movement yet. Patient also complained of chest pain which I obtained an EKG this morning without any acute ST elevations or troponins that were elevated. We will plan to keep patient another day for pain control and general surgery evaluation. I will order a abdominal ultrasound duplex to evaluate flow through the portal vein. Note, lactic acid is normal. Discussed the case with vascular surgery they had recommended a general surgery consult because there was no surgical intervention from their standpoint except possibly stenting which can be done with interventional radiology. 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 Took miralax for no BM for over 3 days. No SOB or CP. Vitals/I&O Vitals/I&O: Vital Signs Date Time Temp Pulse Resp B/P (MAP) Pulse Ox O2 Delivery O2 Flow Rate FiO2 06/16/21 11:00 98.1 110 18 133/94 (107) 94 Room Air 98.1 I & O 06/15/21 06/15/21 06/16/21 15:00 23:00 07:00 Intake Total 180 ml 210 ml Balance 180 ml 210 ml Physical Exam General: Alert, Oriented X3, Cooperative, mild distress Heart: Regular rate Lungs: Clear Abdomen: Soft, Other (diffuse TTP) Extremities: No clubbing, No cyanosis Skin: No rashes, No breakdown Labs Labs: Laboratory Tests Test 06/16/21 08:10 White Blood Count 9.5 x10^3/uL (4.0-11.0) Red Blood Count 4.84 x10^6/uL (4.30-5.70) Hemoglobin 14.0 g/dL (13.0-17.5) Hematocrit 41.5 % (39.0-53.0) Mean Corpuscular Volume 86 fL (79-100) Mean Corpuscular Hemoglobin 29 pg (25-35) Mean Corpuscular Hemoglobin Concent 34 g/dL (31-37) Red Cell Distribution Width 13.4 % (11.5-14.5) Platelet Count 212 x10^3/uL (140-400) Neutrophils (%) (Auto) 65 % (31-73) Lymphocytes (%) (Auto) 19 % (24-48) Monocytes (%) (Auto) 15 % (0-9) Eosinophils (%) (Auto) 1 % (0-3) Basophils (%) (Auto) 0 % (0-3) Neutrophils # (Auto) 6.2 x10^3/uL (1.8-7.7) Lymphocytes # (Auto) 1.8 x10^3/uL (1.0-4.8) Monocytes # (Auto) 1.4 x10^3/uL (0.0-1.1) Eosinophils # (Auto) 0.1 x10^3/uL (0.0-0.7) Basophils # (Auto) 0.0 x10^3/uL (0.0-0.2) Heparin Anti-Xa Act, Unfractionated > 1.10 IU/mL (0.30-0.70) Sodium Level 134 mmol/L (136-145) Potassium Level 3.6 mmol/L (3.5-5.1) Chloride Level 97 mmol/L (98-107) Carbon Dioxide Level 28 mmol/L (21-32) Anion Gap 9 (6-14) Blood Urea Nitrogen 11 mg/dL (8-26) Creatinine 0.9 mg/dL (0.7-1.3) Estimated GFR (Cockcroft-Gault) 96.6 Glucose Level 105 mg/dL (70-99) Calcium Level 9.1 mg/dL (8.5-10.1) Magnesium Level 2.3 mg/dL (1.8-2.4) Assessment and Plan Assessmemt and Plan Problems Medical Problems: (1) Back pain Status: Acute (2) Generalized abdominal pain Status: Acute (3) Portal vein thrombosis Status: Acute Comment Review of Relevant I have reviewed the following items eva (where applicable) has been applied. Medications: Current Medications Medications (Trade) Dose Ordered Sig/Ziyad Route PRN Reason Start Time Stop Time Status Last Admin Dose Admin Sodium Chloride 1,000 ml @ 25 mls/hr Q24H IV 06/15/21 13:30 06/15/21 13:30 Morphine Sulfate 30 ml @ 0 mls/hr CONT PRN PRN IV PER PROTOCOL 06/15/21 13:30 06/16/21 05:44 Potassium Chloride/Dextrose/ Sod Cl 1,000 ml @ 100 mls/hr Q10H IV 06/15/21 13:30 06/16/21 12:34 Polyethylene Glycol (miraLAX PACKET) 17 gm PRN DAILY PRN PO CONSTIPATION, 1ST CHOICE 06/16/21 10:30 06/16/21 12:35 Justifications for Admission Other Justification Portal vein thrombosis EDGARDO DUGGAN MD Jun 16, 2021 12:51
[2021-06-16] MEDS: IV NORMAL SALINE 1000ML BAG 1,000 ML IV SCH (13:30)
[2021-06-16] MEDS ORDERED: HYDROcodone/APAP 5/325MG 1 TAB TABLET PO PRN (13:45)
[2021-06-16] MEDS ORDERED: BISACODYL 5 MG TABLET.DR. PO PRN (14:45)
[2021-06-16 15:00] VITALS: BP 138/91
[2021-06-16 16:20] LABS: AFPT MARKER 1.7 ng/mL (0.0-8.3)
[2021-06-16 19:00] VITALS: BP 148/92
--- NOTE | 2021-06-16 21:29 | PDOC ---
SURGICAL PROGRESS NOTE DATE: 06/16/21 TIME: 21:27 Subjective Pt seen earlier in the day. Pt with c/o abd pain, but able to ambulate, passing some flatus Vital Signs Vital Signs Date Time Temp Pulse Resp B/P (MAP) Pulse Ox O2 Delivery O2 Flow Rate FiO2 06/16/21 19:00 98.0 110 22 148/92 (110) 93 Room Air 98.0 I&O Intake and Output 06/16/21 07:00 Intake Total 390 ml Balance 390 ml Intake Oral 390 ml # Voids 2 General: Alert, Oriented X3, Cooperative, mild distress Abdomen: Soft, Other (mild diffuse TTP) Labs Laboratory Tests Test 06/14/21 21:48 06/15/21 03:20 06/16/21 08:10 Heparin Anti-Xa Act, Unfractionated 0.46 IU/mL (0.30-0.70) 0.40 IU/mL (0.30-0.70) > 1.10 IU/mL (0.30-0.70) White Blood Count 9.9 x10^3/uL (4.0-11.0) 9.5 x10^3/uL (4.0-11.0) Red Blood Count 4.64 x10^6/uL (4.30-5.70) 4.84 x10^6/uL (4.30-5.70) Hemoglobin 13.7 g/dL (13.0-17.5) 14.0 g/dL (13.0-17.5) Hematocrit 39.8 % (39.0-53.0) 41.5 % (39.0-53.0) Mean Corpuscular Volume 86 fL (79-100) 86 fL (79-100) Mean Corpuscular Hemoglobin 30 pg (25-35) 29 pg (25-35) Mean Corpuscular Hemoglobin Concent 34 g/dL (31-37) 34 g/dL (31-37) Red Cell Distribution Width 13.4 % (11.5-14.5) 13.4 % (11.5-14.5) Platelet Count 185 x10^3/uL (140-400) 212 x10^3/uL (140-400) Neutrophils (%) (Auto) 62 % (31-73) 65 % (31-73) Lymphocytes (%) (Auto) 23 % (24-48) 19 % (24-48) Monocytes (%) (Auto) 14 % (0-9) 15 % (0-9) Eosinophils (%) (Auto) 1 % (0-3) 1 % (0-3) Basophils (%) (Auto) 0 % (0-3) 0 % (0-3) Neutrophils # (Auto) 6.2 x10^3/uL (1.8-7.7) 6.2 x10^3/uL (1.8-7.7) Lymphocytes # (Auto) 2.2 x10^3/uL (1.0-4.8) 1.8 x10^3/uL (1.0-4.8) Monocytes # (Auto) 1.4 x10^3/uL (0.0-1.1) 1.4 x10^3/uL (0.0-1.1) Eosinophils # (Auto) 0.1 x10^3/uL (0.0-0.7) 0.1 x10^3/uL (0.0-0.7) Basophils # (Auto) 0.0 x10^3/uL (0.0-0.2) 0.0 x10^3/uL (0.0-0.2) Sodium Level 136 mmol/L (136-145) 134 mmol/L (136-145) Potassium Level 3.9 mmol/L (3.5-5.1) 3.6 mmol/L (3.5-5.1) Chloride Level 100 mmol/L (98-107) 97 mmol/L (98-107) Carbon Dioxide Level 27 mmol/L (21-32) 28 mmol/L (21-32) Anion Gap 9 (6-14) 9 (6-14) Blood Urea Nitrogen 17 mg/dL (8-26) 11 mg/dL (8-26) Creatinine 1.0 mg/dL (0.7-1.3) 0.9 mg/dL (0.7-1.3) Estimated GFR (Cockcroft-Gault) 85.5 96.6 Glucose Level 105 mg/dL (70-99) 105 mg/dL (70-99) Calcium Level 8.7 mg/dL (8.5-10.1) 9.1 mg/dL (8.5-10.1) Phosphorus Level 3.6 mg/dL (2.6-4.7) Magnesium Level 2.3 mg/dL (1.8-2.4) 2.3 mg/dL (1.8-2.4) Total Bilirubin 0.8 mg/dL (0.2-1.0) Direct Bilirubin 0.2 mg/dL (0.0-0.2) Aspartate Amino Transf (AST/SGOT) 23 U/L (15-37) Alanine Aminotransferase (ALT/SGPT) 59 U/L (16-63) Alkaline Phosphatase 80 U/L (46-116) Total Protein 7.5 g/dL (6.4-8.2) Albumin 3.6 g/dL (3.4-5.0) Tumor Marker Alpha Fetoprotein 1.7 ng/mL (0.0-8.3) Laboratory Tests Test 06/16/21 08:10 White Blood Count 9.5 x10^3/uL (4.0-11.0) Red Blood Count 4.84 x10^6/uL (4.30-5.70) Hemoglobin 14.0 g/dL (13.0-17.5) Hematocrit 41.5 % (39.0-53.0) Mean Corpuscular Volume 86 fL (79-100) Mean Corpuscular Hemoglobin 29 pg (25-35) Mean Corpuscular Hemoglobin Concent 34 g/dL (31-37) Red Cell Distribution Width 13.4 % (11.5-14.5) Platelet Count 212 x10^3/uL (140-400) Neutrophils (%) (Auto) 65 % (31-73) Lymphocytes (%) (Auto) 19 % (24-48) Monocytes (%) (Auto) 15 % (0-9) Eosinophils (%) (Auto) 1 % (0-3) Basophils (%) (Auto) 0 % (0-3) Neutrophils # (Auto) 6.2 x10^3/uL (1.8-7.7) Lymphocytes # (Auto) 1.8 x10^3/uL (1.0-4.8) Monocytes # (Auto) 1.4 x10^3/uL (0.0-1.1) Eosinophils # (Auto) 0.1 x10^3/uL (0.0-0.7) Basophils # (Auto) 0.0 x10^3/uL (0.0-0.2) Heparin Anti-Xa Act, Unfractionated > 1.10 IU/mL (0.30-0.70) Sodium Level 134 mmol/L (136-145) Potassium Level 3.6 mmol/L (3.5-5.1) Chloride Level 97 mmol/L (98-107) Carbon Dioxide Level 28 mmol/L (21-32) Anion Gap 9 (6-14) Blood Urea Nitrogen 11 mg/dL (8-26) Creatinine 0.9 mg/dL (0.7-1.3) Estimated GFR (Cockcroft-Gault) 96.6 Glucose Level 105 mg/dL (70-99) Calcium Level 9.1 mg/dL (8.5-10.1) Magnesium Level 2.3 mg/dL (1.8-2.4) Problem List Problems Medical Problems: (1) Back pain Status: Acute (2) Generalized abdominal pain Status: Acute (3) Portal vein thrombosis Status: Acute Assessment/Plan PVT agree with anticoagulants and w/u no current surgical plan Justicifation of Admission Dx: Justifications for Admission: Justification of Admission Dx: Yes CARLO ORTIZ MD Jun 16, 2021 21:29
[2021-06-16 23:00] VITALS: BP 150/91
[2021-06-17 03:00] VITALS: BP 132/78
[2021-06-17 07:00] VITALS: BP 120/84
--- NOTE | 2021-06-17 07:27 | PDOC ---
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 Patient had abdominal pain couple weeks ago that resolved spontaneously. There are no exacerbating or alleviating factors. Denies any weight loss, nausea vomiting, dysuria, hematuria, hematemesis, fevers or chills. He does endorse some chest pain that happened a couple weeks ago and resolved spontaneously as well. Denies any palpitations or syncope. His history of his DVT he thought might have been provoked by wrestling. He did have a tender calf pain at the time. He was treated for Xarelto for a year and stopped. He has not been anticoagulated since that time. 06/15: No acute events overnight. Patient continues to have abdominal pain and epigastric tenderness upon my exam. Patient required morphine this morning and has not had breakfast yet due to abdominal pain. Denies any bloody stools are given a bowel movement yet. Patient also complained of chest pain which I obtained an EKG this morning without any acute ST elevations or troponins that were elevated. We will plan to keep patient another day for pain control and general surgery evaluation. I will order a abdominal ultrasound duplex to evaluate flow through the portal vein. Note, lactic acid is normal. Discussed the case with vascular surgery they had recommended a general surgery consult because there was no surgical intervention from their standpoint except possibly stenting which can be done with interventional radiology. 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 Took miralax for no BM for over 3 days. No SOB or CP. Slept intermittently overnight. Ice pack helping with his back pain asking for Lidoderm patch. No BM as of yet though he is passing flatus. Pain is still being controlled with CANVASS MANAGER did not receive p.o. pain medication overnight. Vitals/I&O Vitals/I&O: Vital Signs Date Time Temp Pulse Resp B/P (MAP) Pulse Ox O2 Delivery O2 Flow Rate FiO2 06/17/21 03:00 98.3 120 20 132/78 (96) 94 Room Air 98.3 I & O 06/16/21 06/16/21 06/17/21 15:00 23:00 07:00 Intake Total 400 ml 240 ml 240 ml Balance 400 ml 240 ml 240 ml Physical Exam General: Alert, Oriented X3, Cooperative, mild distress Heart: Regular rate Lungs: Clear Abdomen: Soft, Other (mild diffuse TTP) Extremities: No clubbing, No cyanosis Skin: No rashes, No breakdown Labs Labs: Laboratory Tests Test 06/16/21 08:10 White Blood Count 9.5 x10^3/uL (4.0-11.0) Red Blood Count 4.84 x10^6/uL (4.30-5.70) Hemoglobin 14.0 g/dL (13.0-17.5) Hematocrit 41.5 % (39.0-53.0) Mean Corpuscular Volume 86 fL (79-100) Mean Corpuscular Hemoglobin 29 pg (25-35) Mean Corpuscular Hemoglobin Concent 34 g/dL (31-37) Red Cell Distribution Width 13.4 % (11.5-14.5) Platelet Count 212 x10^3/uL (140-400) Neutrophils (%) (Auto) 65 % (31-73) Lymphocytes (%) (Auto) 19 % (24-48) Monocytes (%) (Auto) 15 % (0-9) Eosinophils (%) (Auto) 1 % (0-3) Basophils (%) (Auto) 0 % (0-3) Neutrophils # (Auto) 6.2 x10^3/uL (1.8-7.7) Lymphocytes # (Auto) 1.8 x10^3/uL (1.0-4.8) Monocytes # (Auto) 1.4 x10^3/uL (0.0-1.1) Eosinophils # (Auto) 0.1 x10^3/uL (0.0-0.7) Basophils # (Auto) 0.0 x10^3/uL (0.0-0.2) Heparin Anti-Xa Act, Unfractionated > 1.10 IU/mL (0.30-0.70) Sodium Level 134 mmol/L (136-145) Potassium Level 3.6 mmol/L (3.5-5.1) Chloride Level 97 mmol/L (98-107) Carbon Dioxide Level 28 mmol/L (21-32) Anion Gap 9 (6-14) Blood Urea Nitrogen 11 mg/dL (8-26) Creatinine 0.9 mg/dL (0.7-1.3) Estimated GFR (Cockcroft-Gault) 96.6 Glucose Level 105 mg/dL (70-99) Calcium Level 9.1 mg/dL (8.5-10.1) Magnesium Level 2.3 mg/dL (1.8-2.4) Assessment and Plan Assessmemt and Plan Problems Medical Problems: (1) Back pain Status: Acute (2) Generalized abdominal pain Status: Acute (3) Portal vein thrombosis Status: Acute Comment Review of Relevant I have reviewed the following items eva (where applicable) has been applied. Medications: Current Medications Medications (Trade) Dose Ordered Sig/Ziyad Route PRN Reason Start Time Stop Time Status Last Admin Dose Admin Polyethylene Glycol (miraLAX PACKET) 17 gm PRN DAILY PRN PO CONSTIPATION, 1ST CHOICE 06/16/21 10:30 06/16/21 12:35 Bisacodyl (Dulcolax Tab) 5 mg PRN DAILY PRN PO CONSTIPATION - 3RD CHOICE 06/16/21 14:45 06/16/21 15:04 Justifications for Admission Other Justification Portal vein thrombosis EDGARDO DUGGAN MD Jun 17, 2021 07:27
[2021-06-17 08:21] LABS: BASO % 0 % (0-3); EOS % 1 % (0-3); HEMATOCRIT 39.5 % (39.0-53.0); HEMOGLOBIN 13.5 g/dL (13.0-17.5); LYMPH # 1.6 x10^3/uL (1.0-4.8); LYMPH % 17 % (24-48); MEAN CORPUSCULAR HEMOGLOBIN 29 pg (25-35); MEAN CORPUSCULAR HGB CONC 34 g/dL (31-37); MEAN CORPUSCULAR VOLUME 86 fL (79-100); MONO # 1.5 x10^3/uL (0.0-1.1); MONO % 16 % (0-9); NEUT # 6.4 x10^3/uL (1.8-7.7); NEUT % 67 % (31-73); PLATELET COUNT 214 x10^3/uL (140-400); RED CELL DISTRIBUTION WIDTH 13.6 % (11.5-14.5); WHITE BLOOD COUNT 9.6 x10^3/uL (4.0-11.0)
[2021-06-17] MEDS: POTASSIUM CL 20MEQ D5-0.45NACL 1,000 ML IV SCH ×2 (08:51→19:03)
[2021-06-17] MEDS: PSYLLIUM HUSK (SUGAR FREE) 1 PKT PACKET PO SCH ×2 (08:54→20:46)
[2021-06-17] MEDS: APIXABAN 5 MG TABLET. PO SCH ×2 (08:54→20:42)
[2021-06-17] MEDS: POLYETHYLENE GLYCOL 3350 17 GM PACKET. PO SCH (08:54)
[2021-06-17] MEDS: SENNOSIDES 8.6 MG TABLET PO PRN (08:54)
[2021-06-17] MEDS: HYDROcodone/APAP 5/325MG 1 TAB TABLET PO PRN ×3 (08:54→20:41)
[2021-06-17] MEDS ORDERED: MAGNESIUM CITRATE 296 ML SOLUTION. PO ONE (09:00)
[2021-06-17] MEDS: SENNOSIDES/DOCUSATE 8.6/50MG TABLET. PO SCH ×2 (09:00→20:42)
[2021-06-17 09:12] LABS: CALCIUM 8.7 mg/dL (8.5-10.1); CREATININE 0.9 mg/dL (0.7-1.3); GFR 96.6; MAGNESIUM 2.3 mg/dL (1.8-2.4); POTASSIUM 4.1 mmol/L (3.5-5.1)
[2021-06-17 10:42] VITALS: BP 139/98
[2021-06-17] MEDS: ANTI-COAG MONITOR BY PHARMACY. MC PRN (11:25)
[2021-06-17] MEDS: LIDOCAINE (700MG/PATCH) PATCH. TD SCH (11:43)
--- NOTE | 2021-06-17 12:27 | PDOC ---
Date of Service: DATE: 06/17/21 TIME: 12:23 Subjective: Subjective: Feels better today, using [employer] less. Passing flatus, no stool. Skipped breakfast. Objective: Vital Signs: Vital Signs Date Time Temp Pulse Resp B/P (MAP) Pulse Ox O2 Delivery O2 Flow Rate FiO2 06/17/21 11:04 Room Air 06/17/21 10:42 98.2 126 20 139/98 (112) 95 98.2 Labs: Laboratory Tests Test 06/17/21 07:20 White Blood Count 9.6 x10^3/uL Red Blood Count 4.60 x10^6/uL Hemoglobin 13.5 g/dL Hematocrit 39.5 % Mean Corpuscular Volume 86 fL Mean Corpuscular Hemoglobin 29 pg Mean Corpuscular Hemoglobin Concent 34 g/dL Red Cell Distribution Width 13.6 % Platelet Count 214 x10^3/uL Neutrophils (%) (Auto) 67 % Lymphocytes (%) (Auto) 17 % Monocytes (%) (Auto) 16 % Eosinophils (%) (Auto) 1 % Basophils (%) (Auto) 0 % Neutrophils # (Auto) 6.4 x10^3/uL Lymphocytes # (Auto) 1.6 x10^3/uL Monocytes # (Auto) 1.5 x10^3/uL Eosinophils # (Auto) 0.0 x10^3/uL Basophils # (Auto) 0.0 x10^3/uL Sodium Level 134 mmol/L Potassium Level 4.1 mmol/L Chloride Level 97 mmol/L Carbon Dioxide Level 28 mmol/L Anion Gap 9 Blood Urea Nitrogen 10 mg/dL Creatinine 0.9 mg/dL Estimated GFR (Cockcroft-Gault) 96.6 Glucose Level 111 mg/dL Calcium Level 8.7 mg/dL Magnesium Level 2.3 mg/dL PE: GEN: NAD - up in chair, looks more comfortable today - has Mag Citrate at bedside LUNGS: CTAB HEART: tachycardic ABD: BS more active today, slightly less distended, non-tender NEURO/PSYCH: A & O 3 A/P: PVT - on Eliquis Abnormal CT - ill-definition of the pancreatic head and uncinate process with inflammatory stranding in the region (could be edematous changes related to the portal vein thrombosis vs acute pancreatitis vs underlying mass) Abd pain, constipation -- AFP normal, [id number] and IgG pending. Trying Mag Citrate today. Heme/onc opinion pending. Justicifation of Admission Dx: Justifications for Admission: Justification of Admission Dx: Yes MARGE WILLIAM Jun 17, 2021 12:26
[2021-06-17] MEDS: IV NORMAL SALINE 1000ML BAG 1,000 ML IV SCH (13:30)
[2021-06-17 15:00] VITALS: BP 140/99
--- NOTE | 2021-06-17 16:27 | PDOC ---
SURGICAL PROGRESS NOTE DATE: 06/17/21 TIME: 16:27 Vital Signs Vital Signs Date Time Temp Pulse Resp B/P (MAP) Pulse Ox O2 Delivery O2 Flow Rate FiO2 06/17/21 15:50 Room Air 06/17/21 15:00 97.7 122 20 140/99 (113) 96 97.7 I&O Intake and Output 06/17/21 07:00 Intake Total 880 ml Balance 880 ml Intake Oral 880 ml # Voids 2 Labs Laboratory Tests Test 06/16/21 08:10 06/17/21 07:20 White Blood Count 9.5 x10^3/uL (4.0-11.0) 9.6 x10^3/uL (4.0-11.0) Red Blood Count 4.84 x10^6/uL (4.30-5.70) 4.60 x10^6/uL (4.30-5.70) Hemoglobin 14.0 g/dL (13.0-17.5) 13.5 g/dL (13.0-17.5) Hematocrit 41.5 % (39.0-53.0) 39.5 % (39.0-53.0) Mean Corpuscular Volume 86 fL (79-100) 86 fL (79-100) Mean Corpuscular Hemoglobin 29 pg (25-35) 29 pg (25-35) Mean Corpuscular Hemoglobin Concent 34 g/dL (31-37) 34 g/dL (31-37) Red Cell Distribution Width 13.4 % (11.5-14.5) 13.6 % (11.5-14.5) Platelet Count 212 x10^3/uL (140-400) 214 x10^3/uL (140-400) Neutrophils (%) (Auto) 65 % (31-73) 67 % (31-73) Lymphocytes (%) (Auto) 19 % (24-48) 17 % (24-48) Monocytes (%) (Auto) 15 % (0-9) 16 % (0-9) Eosinophils (%) (Auto) 1 % (0-3) 1 % (0-3) Basophils (%) (Auto) 0 % (0-3) 0 % (0-3) Neutrophils # (Auto) 6.2 x10^3/uL (1.8-7.7) 6.4 x10^3/uL (1.8-7.7) Lymphocytes # (Auto) 1.8 x10^3/uL (1.0-4.8) 1.6 x10^3/uL (1.0-4.8) Monocytes # (Auto) 1.4 x10^3/uL (0.0-1.1) 1.5 x10^3/uL (0.0-1.1) Eosinophils # (Auto) 0.1 x10^3/uL (0.0-0.7) 0.0 x10^3/uL (0.0-0.7) Basophils # (Auto) 0.0 x10^3/uL (0.0-0.2) 0.0 x10^3/uL (0.0-0.2) Heparin Anti-Xa Act, Unfractionated > 1.10 IU/mL (0.30-0.70) Sodium Level 134 mmol/L (136-145) 134 mmol/L (136-145) Potassium Level 3.6 mmol/L (3.5-5.1) 4.1 mmol/L (3.5-5.1) Chloride Level 97 mmol/L (98-107) 97 mmol/L (98-107) Carbon Dioxide Level 28 mmol/L (21-32) 28 mmol/L (21-32) Anion Gap 9 (6-14) 9 (6-14) Blood Urea Nitrogen 11 mg/dL (8-26) 10 mg/dL (8-26) Creatinine 0.9 mg/dL (0.7-1.3) 0.9 mg/dL (0.7-1.3) Estimated GFR (Cockcroft-Gault) 96.6 96.6 Glucose Level 105 mg/dL (70-99) 111 mg/dL (70-99) Calcium Level 9.1 mg/dL (8.5-10.1) 8.7 mg/dL (8.5-10.1) Magnesium Level 2.3 mg/dL (1.8-2.4) 2.3 mg/dL (1.8-2.4) Laboratory Tests Test 06/17/21 07:20 White Blood Count 9.6 x10^3/uL (4.0-11.0) Red Blood Count 4.60 x10^6/uL (4.30-5.70) Hemoglobin 13.5 g/dL (13.0-17.5) Hematocrit 39.5 % (39.0-53.0) Mean Corpuscular Volume 86 fL (79-100) Mean Corpuscular Hemoglobin 29 pg (25-35) Mean Corpuscular Hemoglobin Concent 34 g/dL (31-37) Red Cell Distribution Width 13.6 % (11.5-14.5) Platelet Count 214 x10^3/uL (140-400) Neutrophils (%) (Auto) 67 % (31-73) Lymphocytes (%) (Auto) 17 % (24-48) Monocytes (%) (Auto) 16 % (0-9) Eosinophils (%) (Auto) 1 % (0-3) Basophils (%) (Auto) 0 % (0-3) Neutrophils # (Auto) 6.4 x10^3/uL (1.8-7.7) Lymphocytes # (Auto) 1.6 x10^3/uL (1.0-4.8) Monocytes # (Auto) 1.5 x10^3/uL (0.0-1.1) Eosinophils # (Auto) 0.0 x10^3/uL (0.0-0.7) Basophils # (Auto) 0.0 x10^3/uL (0.0-0.2) Sodium Level 134 mmol/L (136-145) Potassium Level 4.1 mmol/L (3.5-5.1) Chloride Level 97 mmol/L (98-107) Carbon Dioxide Level 28 mmol/L (21-32) Anion Gap 9 (6-14) Blood Urea Nitrogen 10 mg/dL (8-26) Creatinine 0.9 mg/dL (0.7-1.3) Estimated GFR (Cockcroft-Gault) 96.6 Glucose Level 111 mg/dL (70-99) Calcium Level 8.7 mg/dL (8.5-10.1) Magnesium Level 2.3 mg/dL (1.8-2.4) Problem List Problems Medical Problems: (1) Back pain Status: Acute (2) Generalized abdominal pain Status: Acute (3) Portal vein thrombosis Status: Acute Assessment/Plan Pt out of room ambulating no surgical plans will sign off, but please call for questions. Justicifation of Admission Dx: Justifications for Admission: Justification of Admission Dx: Yes CARLO ORTIZ MD Jun 17, 2021 16:27
[2021-06-17 19:00] VITALS: BP 131/86
[2021-06-17] MEDS: PATCH REMOVAL. MC SCH (21:00)
[2021-06-17 23:06] VITALS: BP 127/72
[2021-06-18 03:09] VITALS: BP 130/82
[2021-06-18] MEDS: HYDROcodone/APAP 5/325MG 1 TAB TABLET PO PRN (03:12)
[2021-06-18] MEDS: POTASSIUM CL 20MEQ D5-0.45NACL 1,000 ML IV SCH ×3 (04:07→21:30)
--- NOTE | 2021-06-18 06:52 | PDOC ---
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 Patient had abdominal pain couple weeks ago that resolved spontaneously. There are no exacerbating or alleviating factors. Denies any weight loss, nausea vomiting, dysuria, hematuria, hematemesis, fevers or chills. He does endorse some chest pain that happened a couple weeks ago and resolved spontaneously as well. Denies any palpitations or syncope. His history of his DVT he thought might have been provoked by wrestling. He did have a tender calf pain at the time. He was treated for Xarelto for a year and stopped. He has not been anticoagulated since that time. 06/15: No acute events overnight. Patient continues to have abdominal pain and epigastric tenderness upon my exam. Patient required morphine this morning and has not had breakfast yet due to abdominal pain. Denies any bloody stools are given a bowel movement yet. Patient also complained of chest pain which I obtained an EKG this morning without any acute ST elevations or troponins that were elevated. We will plan to keep patient another day for pain control and general surgery evaluation. I will order a abdominal ultrasound duplex to evaluate flow through the portal vein. Note, lactic acid is normal. Discussed the case with vascular surgery they had recommended a general surgery consult because there was no surgical intervention from their standpoint except possibly stenting which can be done with interventional radiology. 06/16: Placed on morphine LAST CODE STRIPER due to severity of pain not controlled with frequent IV morphine. Took miralax for no BM for over 3 days. No SOB or CP. 06/17: Slept intermittently overnight. Ice pack helping with his back pain a sking for Lidoderm patch. No BM as of yet though he is passing flatus. Pain is still being controlled with LAST CODE STRIPER did not receive p.o. pain medication overnight. AFP is 1.7 CA 19-9 is 7, both negative. Afebrile overnight. Having more gaseous distention and air pain. No BM still passing some flatus. Ordering KUB, simethicone and consider Relistor administration. Seen by oncology note protein C this Antithrombin III labs. Outpatient follow-up in 3-week plans Vitals/I&O Vitals/I&O: Vital Signs Date Time Temp Pulse Resp B/P (MAP) Pulse Ox O2 Delivery O2 Flow Rate FiO2 06/18/21 03:42 Room Air 06/18/21 03:09 98.8 102 20 130/82 (98) 92 98.8 I & O 06/17/21 06/17/21 06/18/21 15:00 23:00 07:00 Intake Total 1540 ml 1280 ml Balance 1540 ml 1280 ml Physical Exam General: Alert, Oriented X3, Cooperative, mild distress Heart: Regular rate Lungs: Clear Abdomen: Soft, Other (mild diffuse TTP) Extremities: No clubbing, No cyanosis Skin: No rashes, No breakdown Labs Labs: Laboratory Tests Test 06/17/21 07:20 White Blood Count 9.6 x10^3/uL (4.0-11.0) Red Blood Count 4.60 x10^6/uL (4.30-5.70) Hemoglobin 13.5 g/dL (13.0-17.5) Hematocrit 39.5 % (39.0-53.0) Mean Corpuscular Volume 86 fL (79-100) Mean Corpuscular Hemoglobin 29 pg (25-35) Mean Corpuscular Hemoglobin Concent 34 g/dL (31-37) Red Cell Distribution Width 13.6 % (11.5-14.5) Platelet Count 214 x10^3/uL (140-400) Neutrophils (%) (Auto) 67 % (31-73) Lymphocytes (%) (Auto) 17 % (24-48) Monocytes (%) (Auto) 16 % (0-9) Eosinophils (%) (Auto) 1 % (0-3) Basophils (%) (Auto) 0 % (0-3) Neutrophils # (Auto) 6.4 x10^3/uL (1.8-7.7) Lymphocytes # (Auto) 1.6 x10^3/uL (1.0-4.8) Monocytes # (Auto) 1.5 x10^3/uL (0.0-1.1) Eosinophils # (Auto) 0.0 x10^3/uL (0.0-0.7) Basophils # (Auto) 0.0 x10^3/uL (0.0-0.2) Sodium Level 134 mmol/L (136-145) Potassium Level 4.1 mmol/L (3.5-5.1) Chloride Level 97 mmol/L (98-107) Carbon Dioxide Level 28 mmol/L (21-32) Anion Gap 9 (6-14) Blood Urea Nitrogen 10 mg/dL (8-26) Creatinine 0.9 mg/dL (0.7-1.3) Estimated GFR (Cockcroft-Gault) 96.6 Glucose Level 111 mg/dL (70-99) Calcium Level 8.7 mg/dL (8.5-10.1) Magnesium Level 2.3 mg/dL (1.8-2.4) Assessment and Plan Assessmemt and Plan Problems Medical Problems: (1) Back pain Status: Acute (2) Generalized abdominal pain Status: Acute (3) Portal vein thrombosis Status: Acute Comment Review of Relevant I have reviewed the following items eva (where applicable) has been applied. Medications: Current Medications Medications (Trade) Dose Ordered Sig/Ziyad Route PRN Reason Start Time Stop Time Status Last Admin Dose Admin Psyllium Hydrophilic Mucilloid (Metamucil Fiber Packet) 1 pkt QHS PO 06/17/21 07:30 06/17/21 20:46 Senna/Docusate Sodium (Senna Plus) 1 tab BID PO 06/17/21 09:00 06/17/21 20:42 Polyethylene Glycol (miraLAX PACKET) 17 gm DAILY PO 06/17/21 09:00 06/17/21 08:54 Lidocaine (Lidoderm) 1 patch DAILY TD 06/17/21 09:00 06/17/21 11:43 Magnesium Citrate (Citroma) 296 ml 1X ONCE PO 06/17/21 09:00 06/17/21 09:01 DC 06/17/21 11:04 Info (Anti-Coagulation Monitoring By Pharmacy) 1 each PRN DAILY PRN MC PER PROTOCOL 06/17/21 11:30 06/17/21 11:25 Justifications for Admission Other Justification Portal vein thrombosis EDGARDO DUGGAN MD Jun 18, 2021 06:52
[2021-06-18 07:00] VITALS: BP 139/91
[2021-06-18] MEDS: MORPHINE SULFATE 30 ML IV PRN (07:48)
--- NOTE | 2021-06-18 08:20 | PDOC2 ---
CONSULT Date of Consult Date of Consult DATE: 06/18/21 TIME: 08:14 Reason for Consult Reason for Consult: History of DVT. Presented with portal vein thrombosis Referring Physician Referring Physician: Dr. Olguin Identification/Chief Complaint Chief Complaint Abdominal pain Source Source: Chart review, Patient History of Present Illness Reason for Visit: Paramjit Carty is a 35-year-old male who presented to the hospital with abdominal pain. He has been found to have acute pancreatitis on imaging as well as portal vein thrombosis. He has been started on therapeutic anticoagulation with apixaban 5 mg twice daily. Paramjit reports a history of right lower extremity DVT that was diagnosed 4 years ago. This was diagnosed [facility] He reports that he took Xarelto for 1 year. He does not recall an antecedent history of prolonged air/car travel, orthopedic procedures, other surgeries, testosterone supplementation, or other DVT risk factors. He denies a family history of VTE. He has been admitted to the hospital for further management of pancreatitis and abdominal pain. He reports abdominal distention and constipation today. 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) Past Surgical History Past Surgical History: Appendectomy Family History Family History: No Significant (no hx of clotting disorders) Social History No ALCOHOL: none Current Problem List Problem List Problems Medical Problems: (1) Back pain Status: Acute (2) Generalized abdominal pain Status: Acute (3) Portal vein thrombosis Status: Acute Current Medications Current Medications Current Medications Morphine Sulfate (Morphine Sulfate) 4 mg 1X ONCE IVP Last administered on 06/14/21at 06:13; Start 06/14/21 at 06:00; Stop 06/14/21 at 06:01; Status DC Ondansetron HCl (Zofran) 4 mg 1X ONCE IVP Last administered on 06/14/21at 06:13; Start 06/14/21 at 06:00; Stop 06/14/21 at 06:01; Status DC Iohexol (Omnipaque 300 Mg/ml) 75 ml 1X ONCE IV Last administered on 06/14/21at 06:47; Start 06/14/21 at 06:30; Stop 06/14/21 at 06:31; Status DC Info (CONTRAST GIVEN -- Rx MONITORING) 1 each PRN DAILY PRN MC SEE COMMENTS; Start 06/14/21 at 06:15; Stop 06/16/21 at 06:14; Status DC Heparin Sodium (Porcine) (Heparin Sodium) 4,000 unit 1X ONCE IV Last administered on 06/14/21at 08:22; Start 06/14/21 at 07:30; Stop 06/14/21 at 07:37; Status DC Ondansetron HCl (Zofran) 4 mg PRN Q8HRS PRN IVP NAUSEA/VOMITING; Start 06/14/21 at 08:15; Stop 06/14/21 at 13:47; Status DC Morphine Sulfate (Morphine Sulfate) 4 mg PRN Q2HR PRN IVP PAIN Last administered on 06/14/21at 11:26; Start 06/14/21 at 08:15; Stop 06/14/21 at 13:48; Status DC Fentanyl Citrate (Fentanyl 2ml Vial) 50 mcg PRN Q1HR PRN IVP PAIN Last administered on 06/14/21at 13:50; Start 06/14/21 at 08:15; Stop 06/15/21 at 08 :14; Status DC Sodium Chloride 1,000 ml @ 100 mls/hr 1X ONCE IV Last administered on 06/14/21at 08:15; Start 06/14/21 at 08:15; Stop 06/14/21 at 18:14; Status DC Heparin Sodium/ Dextrose 250 ml @ 17.44 mls/ hr CONT PRN IV SEE I/O RECORD Last administered on 06/14/21at 22:13; Start 06/14/21 at 08:07; Stop 06/15/21 at 08:21; Status DC Sennosides (Senna) 17.2 mg PRN BID PRN PO CONSTIPATION- 2ND CHOICE Last administered on 06/17/21at 08:54; Start 06/14/21 at 13:30 Docusate Sodium (Colace) 100 mg PRN DAILY PRN PO HARD STOOLS; Start 06/14/21 at 13:30 Ondansetron HCl (Zofran) 4 mg PRN Q6HRS PRN IVP NAUSEA/VOMITING, 1st CHOICE; S tart 06/14/21 at 13:30 Dextrose (Dextrose 50%-Water Syringe) 12.5 gm PRN Q15MIN PRN IV SEE COMMENTS; Start 06/14/21 at 13:30 Acetaminophen (Tylenol) 650 mg PRN Q4HRS PRN PO TEMP OVER 100.4F OR MILD PAIN; Start 06/14/21 at 13:30 Lorazepam (Ativan) 0.5 mg PRN Q6HRS PRN PO ANXIETY / AGITATION Last administered on 06/14/21at 22:05; Start 06/14/21 at 13:30 Lorazepam (Ativan Inj) 0.25 mg PRN Q4HRS PRN IV ANXIETY / AGITATION; Start 06/14/21 at 13:30 Acetaminophen/ Hydrocodone Bitart (Lortab 5/325) 1 tab PRN Q4HRS PRN PO MODERATE PAIN 4-6 Last administered on 06/15/21at 10:11; Start 06/14/21 at 13:30; Stop 06/16/21 at 13:38; Status DC Morphine Sulfate (Morphine Sulfate) 1 mg PRN Q1HR PRN IV PAIN; Start 06/14/21 at 13:30; Stop 06/15/21 at 13:26; Status DC Morphine Sulfate (Morphine Sulfate) 2 mg PRN Q2HR PRN IVP SEVERE PAIN 7-10 Last administered on 06/15/21at 08:56; Start 06/14/21 at 13:30; Stop 06/15/21 at 13:26; Status DC Prochlorperazine Edisylate (Compazine) 10 mg PRN Q6HRS PRN IV NAUSEA/VOMITING, 2nd CHOICE; Start 06/14/21 at 13:30 Zolpidem Tartrate (Ambien) 2.5 mg PRN QHS PRN PO INSOMNIA Last administered on 06/14/21at 22:05; Start 06/14/21 at 13:30 Heparin Sodium (Porcine) (Heparin Sodium) 3,150 unit PRN Q6HRS PRN IV FOR UFH LEVEL LESS THAN 0.2; Start 06/14/21 at 18:00; Stop 06/15/21 at 08:21; Status DC Heparin Sodium (Porcine) (Heparin Sodium) 1,550 unit PRN Q6HRS PRN IV FOR UFH LEVEL 0.2 - 0.29 Last administered on 06/14/21at 18:14; Start 06/14/21 at 18:00; Stop 06/15/21 at 08:21; Status DC Apixaban (Eliquis) 10 mg BID PO Last administered on 06/17/21at 20:42; Start 06/15/21 at 09:00; Stop 06/21/21 at 21:01 Apixaban (Eliquis) 5 mg BID PO ; Start 06/22/21 at 09:00 Naloxone HCl (Narcan) 0.4 mg PRN Q2MIN PRN IV SEE INSTRUCTIONS; Start 06/15/21 at 13:30 Sodium Chloride 1,000 ml @ 25 mls/hr Q24H IV Last administered on 06/15/21at 13:30; Start 06/15/21 at 13:30 Morphine Sulfate 30 ml @ 0 mls/hr CONT PRN PRN IV PER PROTOCOL Last administered on 06/18/21at 07:48; Start 06/15/21 at 13:30 Potassium Chloride/Dextrose/ Sod Cl 1,000 ml @ 100 mls/hr Q10H IV Last administered on 06/18/21at 04:07; Start 06/15/21 at 13:30 Polyethylene Glycol (miraLAX PACKET) 17 gm PRN DAILY PRN PO CONSTIPATION, 1ST CHOICE Last administered on 06/16/21at 12:35; Start 06/16/21 at 10:30 Acetaminophen/ Hydrocodone Bitart (Lortab 5/325) 1 tab PRN Q4HRS PRN PO MODERATE PAIN; Start 06/16/21 at 13:45 Acetaminophen/ Hydrocodone Bitart (Lortab 5/325) 2 tab PRN Q4HRS PRN PO SEVERE PAIN Last administered on 06/18/21at 03:12; Start 06/16/21 at 13:45 Bisacodyl (Dulcolax Tab) 5 mg PRN DAILY PRN PO CONSTIPATION - 3RD CHOICE Last administered on 06/16/21at 15:04; Start 06/16/21 at 14:45 Psyllium Hydrophilic Mucilloid (Metamucil Fiber Packet) 1 pkt QHS PO Last administered on 06/17/21at 20:46; Start 06/17/21 at 07:30 Senna/Docusate Sodium (Senna Plus) 1 tab BID PO Last administered on 06/17/21at 20:42; Start 06/17/21 at 09:00 Polyethylene Glycol (miraLAX PACKET) 17 gm DAILY PO Last administered on 06/17/21at 08:54; Start 06/17/21 at 09:00 Lidocaine (Lidoderm) 1 patch DAILY TD Last administered on 06/17/21at 11:43; Start 06/17/21 at 09:00 Miscellaneous (Lidoderm Patch Removal) 1 ea QHS MC ; Start 06/17/21 at 21:00 Magnesium Citrate (Citroma) 296 ml 1X ONCE PO Last administered on 06/17/21at 11:04; Start 06/17/21 at 09:00; Stop 06/17/21 at 09:01; Status DC Info (Anti-Coagulation Monitoring By Pharmacy) 1 each PRN DAILY PRN MC PER PROTOCOL Last administered on 06/17/21at 11:25; Start 06/17/21 at 11:30 Active Scripts Active Hydrocodone-Chlorpheniram Susp (Hydrocodone/Chlorphen Polis) 5 Ml Mervat.er.12h 5 Ml PO PRN Q12HR PRN Proair Hfa Inhaler (Albuterol Sulfate) 8.5 Gm Hfa.aer.ad 1 Puff INH PRN Q6HRS PRN Tamiflu (Oseltamivir Phosphate) 75 Mg Capsule 1 Cap PO BID Allergies Allergies: Coded Allergies: No Known Drug Allergies (Unverified , 11/26/13) ROS Review of System Negative unless stated otherwise in HPI Physical Exam Physical Exam General: Awake, alert, no distress Head: Atraumatic, no conjunctival icterus, normal oral cavity mucosa Neck: Supple, no lymphadenopathy Chest: No trauma noted Cardiovascular: Regular rhythm, normal rate, no murmurs Respiratory: Bilateral air entry noted, lungs clear to auscultation bilaterally. No accessory muscle use Abdominal: Abdomen is soft, nontender, nondistended. Bowel sounds were normal. No hepatomegaly or splenomegaly Musculoskeletal: No deformity noted Extremities: No edema noted Skin: No rash or lesions Neurologic: Alert and oriented x3, no grossly evident neurologic deficits noted. Full neurological exam was not performed Psychiatric: Appropriate mood and affect Vitals VITALS Vital Signs Date Time Temp Pulse Resp B/P (MAP) Pulse Ox O2 Delivery O2 Flow Rate FiO2 06/18/21 07:48 Room Air 06/18/21 07:00 97.7 103 22 139/91 (107) 93 97.7 Labs Labs Laboratory Tests Test 06/17/21 07:20 White Blood Count 9.6 x10^3/uL (4.0-11.0) Red Blood Count 4.60 x10^6/uL (4.30-5.70) Hemoglobin 13.5 g/dL (13.0-17.5) Hematocrit 39.5 % (39.0-53.0) Mean Corpuscular Volume 86 fL (79-100) Mean Corpuscular Hemoglobin 29 pg (25-35) Mean Corpuscular Hemoglobin Concent 34 g/dL (31-37) Red Cell Distribution Width 13.6 % (11.5-14.5) Platelet Count 214 x10^3/uL (140-400) Neutrophils (%) (Auto) 67 % (31-73) Lymphocytes (%) (Auto) 17 % (24-48) Monocytes (%) (Auto) 16 % (0-9) Eosinophils (%) (Auto) 1 % (0-3) Basophils (%) (Auto) 0 % (0-3) Neutrophils # (Auto) 6.4 x10^3/uL (1.8-7.7) Lymphocytes # (Auto) 1.6 x10^3/uL (1.0-4.8) Monocytes # (Auto) 1.5 x10^3/uL (0.0-1.1) Eosinophils # (Auto) 0.0 x10^3/uL (0.0-0.7) Basophils # (Auto) 0.0 x10^3/uL (0.0-0.2) Sodium Level 134 mmol/L (136-145) Potassium Level 4.1 mmol/L (3.5-5.1) Chloride Level 97 mmol/L (98-107) Carbon Dioxide Level 28 mmol/L (21-32) Anion Gap 9 (6-14) Blood Urea Nitrogen 10 mg/dL (8-26) Creatinine 0.9 mg/dL (0.7-1.3) Estimated GFR (Cockcroft-Gault) 96.6 Glucose Level 111 mg/dL (70-99) Calcium Level 8.7 mg/dL (8.5-10.1) Magnesium Level 2.3 mg/dL (1.8-2.4) Assessment/Plan Assessment/Plan Assessment: Portal vein thrombosis History of right lower extremity DVT, unprovoked Abdominal pain Constipation Recommendations: -We discussed the evaluation of recurrent VTE. Given history of unprovoked DVT and current presentation with portal vein thrombosis, recommended further evaluation for hypercoagulable syndromes -Factor V Leiden and prothrombin gene mutation testing is not allowed inpatient and will be obtained outpatient -Ordered protein C, protein S, beta-2 glycoprotein IgG, lupus anticoagulant, anticardiolipin antibody, Antithrombin III level -Continue Eliquis 5 mg twice daily and plan for at least 6 months of therapeutic anticoagulation -We will arrange outpatient medical oncology/hematology follow-up in 3 weeks to review results of hypercoagulable work-up and plan for further care. Patient was provided contact information for my office -No additional hematology recommendations. Rest per Dr. Sharif Banks MD Medical Oncology/Hematology Ph: [phone] MAUREEN BANKS MD Jun 18, 2021 08:20
[2021-06-18] MEDS: SENNOSIDES/DOCUSATE 8.6/50MG TABLET. PO SCH ×2 (09:00→21:00)
[2021-06-18] MEDS: POLYETHYLENE GLYCOL 3350 17 GM PACKET. PO SCH (09:00)
[2021-06-18] MEDS: APIXABAN 5 MG TABLET. PO SCH ×2 (09:29→20:47)
[2021-06-18] MEDS: LIDOCAINE (700MG/PATCH) PATCH. TD SCH (09:29)
[2021-06-18] MEDS ORDERED: fentaNYL PF VIAL 100 MCG/2 ML VIAL IVP ONE (09:30)
[2021-06-18 11:00] VITALS: BP 138/91
--- NOTE | 2021-06-18 12:04 | PDOC ---
Date of Service: DATE: 06/18/21 TIME: 11:59 Subjective: Subjective: Feels worse today. Some nausea, more distention/abd pain, more belching and less flatus, still no stool. "Had visions" after Fentanyl. Ate a little last night, nothing this morning. Objective: Objective: D/w nurse and Dr. Olguin. Reviewed heme/onc note - plans for outpt follow-up. Vital Signs: Vital Signs Date Time Temp Pulse Resp B/P (MAP) Pulse Ox O2 Delivery O2 Flow Rate FiO2 06/18/21 11:00 98.3 101 22 138/91 (107) 92 Room Air 98.3 Imaging: KUB 06/18 pending PE: GEN: NAD, mother present LUNGS: CTAB anteriorly HEART: RRR ABD: quiet today, more distention, nonspecific discomfort NEURO/PSYCH: A & O 3 A/P: PVT - on Eliquis Abnormal CT - ill-definition of the pancreatic head and uncinate process with inflammatory stranding in the region - ?pancreatitis Abd pain, constipation - worse despite Mag Citrate yesterday Nausea - new today -- Awaiting KUB. Consider Relistor pending these results. AFP, CA19-9, IgG panel WNL. Justicifation of Admission Dx: Justifications for Admission: Justification of Admission Dx: Yes MARGE WILLIAM Jun 18, 2021 12:04
[2021-06-18] MEDS: IV NORMAL SALINE 1000ML BAG 1,000 ML IV SCH (13:30)
--- NOTE | 2021-06-18 13:31 | RAD ---
Supine abdomen. HISTORY: Distention, loss of bowel sounds Supine views were taken of the abdomen. There is a catheter in the right upper quadrant. There is dif fuse distention of the colon and small bowel suggesting a diffuse ileus. There are no abnormal calcif ications. There is decreased contrast in the pelvis, a distal colon obstruction would be possible. IMPRESSION: 1. Distended colon and small bowel from an ileus or distal colon obstruction. Electronically signed by: Ronny Peralta MD (06/18/2021 1:28 PM) [facility]
[2021-06-18] MEDS: FAMOTIDINE 20 MG/2 ML VIAL IVP SCH (14:01)
[2021-06-18] MEDS ORDERED: METHYLNALTREXONE 12 MG/0.6 ML VIAL. SQ ONE (14:30)
[2021-06-18 15:00] VITALS: BP 147/104
[2021-06-18 19:00] VITALS: BP 131/90
[2021-06-18] MEDS: SENNOSIDES 8.6 MG TABLET PO PRN (20:47)
[2021-06-18] MEDS: PSYLLIUM HUSK (SUGAR FREE) 1 PKT PACKET PO SCH (20:47)
[2021-06-18] MEDS: PATCH REMOVAL. MC SCH (21:00)
[2021-06-18] MEDS: ZOLPIDEM 5 MG TABLET. PO PRN (21:15)
[2021-06-18 23:34] VITALS: BP 133/89
[2021-06-19 03:37] VITALS: BP 134/93
[2021-06-19] MEDS: MORPHINE SULFATE 30 ML IV PRN ×2 (04:08→23:58)
[2021-06-19 07:00] VITALS: BP 142/88
[2021-06-19 08:42] LABS: HEMATOCRIT 39.1 % (39.0-53.0); HEMOGLOBIN 13.3 g/dL (13.0-17.5); RED BLOOD COUNT 4.53 x10^6/uL (4.30-5.70); RED CELL DISTRIBUTION WIDTH 13.8 % (11.5-14.5); WHITE BLOOD COUNT 9.3 x10^3/uL (4.0-11.0)
--- NOTE | 2021-06-19 09:00 | PDOC ---
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 Patient had abdominal pain couple weeks ago that resolved spontaneously. There are no exacerbating or alleviating factors. Denies any weight loss, nausea vomiting, dysuria, hematuria, hematemesis, fevers or chills. He does endorse some chest pain that happened a couple weeks ago and resolved spontaneously as well. Denies any palpitations or syncope. His history of his DVT he thought might have been provoked by wrestling. He did have a tender calf pain at the time. He was treated for Xarelto for a year and stopped. He has not been anticoagulated since that time. 06/15: No acute events overnight. Patient continues to have abdominal pain and epigastric tenderness upon my exam. Patient required morphine this morning and has not had breakfast yet due to abdominal pain. Denies any bloody stools are given a bowel movement yet. Patient also complained of chest pain which I obtained an EKG this morning without any acute ST elevations or troponins that were elevated. We will plan to keep patient another day for pain control and general surgery evaluation. I will order a abdominal ultrasound duplex to evaluate flow through the portal vein. Note, lactic acid is normal. Discussed the case with vascular surgery they had recommended a general surgery consult because there was no surgical intervention from their standpoint except possibly stenting which can be done with interventional radiology. 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 Took miralax for no BM for over 3 days. No SOB or CP. 06/17: Slept intermittently overnight. Ice pack helping with his back pain a sking for Lidoderm patch. No BM as of yet though he is passing flatus. Pain is still being controlled with BINDER CASER did not receive p.o. pain medication overnight. AFP is 1.7 CA 19-9 is 7, both negative. 06/18: Afebrile overnight. Having more gaseous distention and air pain. No BM still passing some flatus. Vomited x2.. KUB with ileus, simethicone and Relistor administration with 2 BM. Seen by oncology note protein C this Antithrombin III labs. Outpatient follow-up in 3-week plans Despite BM overnight he still feeling very distended and bloated. Pain is still 7-8 out of 10. His back pain is now 6 out of 10 and he is walking to try to relieve it. Lidoderm patch was initially helping but now he does not feel it helping as much. Vitals/I&O Vitals/I&O: Vital Signs Date Time Temp Pulse Resp B/P (MAP) Pulse Ox O2 Delivery O2 Flow Rate FiO2 06/19/21 07:00 98.1 108 20 142/88 (106) 93 Room Air 98.1 I & O 06/18/21 06/18/21 06/19/21 15:00 23:00 07:00 Intake Total 240 ml 520 ml Balance 240 ml 520 ml Physical Exam General: Alert, Oriented X3, Cooperative, mild distress Heart: Regular rate Lungs: Clear Abdomen: Soft, Other (mild diffuse TTP) Extremities: No clubbing, No cyanosis Skin: No rashes, No breakdown Assessment and Plan Assessmemt and Plan Problems Medical Problems: (1) Back pain Status: Acute (2) Generalized abdominal pain Status: Acute (3) Portal vein thrombosis Status: Acute Comment Review of Relevant I have reviewed the following items eva (where applicable) has been applied. Medications: Current Medications Medications (Trade) Dose Ordered Sig/Ziyad Route PRN Reason Start Time Stop Time Status Last Admin Dose Admin Fentanyl Citrate (Fentanyl 2ml Vial) 50 mcg 1X ONCE IVP 06/18/21 09:30 06/18/21 09:31 DC 06/18/21 09:30 Famotidine (Pepcid Vial) 20 mg DAILY IVP 06/18/21 13:00 06/18/21 14:01 Methylnaltrexone [place] (Relistor) 12 mg 1X ONCE SQ 06/18/21 14:30 06/18/21 14:31 DC 06/18/21 14:33 Justifications for Admission Other Justification Portal vein thrombosis EDGARDO DUGGAN MD Jun 19, 2021 09:00
[2021-06-19 09:16] LABS: ALBUMIN 3.5 g/dL (3.4-5.0); ALBUMIN/GLOBULIN RATIO 0.8 (1.0-1.7); CALCIUM 8.6 mg/dL (8.5-10.1); CREATININE 0.9 mg/dL (0.7-1.3); GFR 96.6; TOTAL BILIRUBIN 0.7 mg/dL (0.2-1.0); TOTAL PROTEIN 7.9 g/dL (6.4-8.2)
[2021-06-19] MEDS: LIDOCAINE (700MG/PATCH) PATCH. TD SCH (09:56)
[2021-06-19] MEDS: SIMETHICONE 80 MG TAB.CHEW PO PRN (09:57)
[2021-06-19] MEDS: APIXABAN 5 MG TABLET. PO SCH ×2 (09:57→21:20)
[2021-06-19] MEDS: POLYETHYLENE GLYCOL 3350 17 GM PACKET. PO SCH (09:57)
[2021-06-19] MEDS: SENNOSIDES/DOCUSATE 8.6/50MG TABLET. PO SCH (09:57)
[2021-06-19] MEDS: FAMOTIDINE 20 MG/2 ML VIAL IVP SCH (09:58)
[2021-06-19] MEDS: POTASSIUM CL 20MEQ D5-0.45NACL 1,000 ML IV SCH ×2 (10:07→21:19)
[2021-06-19 11:05] VITALS: BP 132/87
--- NOTE | 2021-06-19 11:28 | PDOC ---
Date of Service: DATE: 06/19/21 TIME: 11:24 Subjective: Subjective: Two small stools after Relistor - maybe felt a little better. Still not passing much flatus. More distended. 06/15 abd pain. Concerned about pancreas. Vomited "acid" yesterday. Objective: Objective: D/w nurse yesterday re: x-ray results - made NPO - d/w Dr. Lin and ordered Relistor. Vital Signs: Vital Signs Date Time Temp Pulse Resp B/P (MAP) Pulse Ox O2 Delivery O2 Flow Rate FiO2 06/19/21 11:05 98.6 97 20 132/87 (102) 94 Room Air 98.6 Labs: Laboratory Tests Test 06/19/21 07:40 White Blood Count 9.3 x10^3/uL Red Blood Count 4.53 x10^6/uL Hemoglobin 13.3 g/dL Hematocrit 39.1 % Mean Corpuscular Volume 86 fL Mean Corpuscular Hemoglobin 29 pg Mean Corpuscular Hemoglobin Concent 34 g/dL Red Cell Distribution Width 13.8 % Platelet Count 311 x10^3/uL Sodium Level 133 mmol/L Potassium Level 4.0 mmol/L Chloride Level 98 mmol/L Carbon Dioxide Level 30 mmol/L Anion Gap 5 Blood Urea Nitrogen 10 mg/dL Creatinine 0.9 mg/dL Estimated GFR (Cockcroft-Gault) 96.6 BUN/Creatinine Ratio 11 Glucose Level 120 mg/dL Calcium Level 8.6 mg/dL Total Bilirubin 0.7 mg/dL Aspartate Amino Transf (AST/SGOT) 19 U/L Alanine Aminotransferase (ALT/SGPT) 35 U/L Alkaline Phosphatase 78 U/L Total Protein 7.9 g/dL Albumin 3.5 g/dL Albumin/Globulin Ratio 0.8 Imaging: KUB 06/18 IMPRESSION: 1. Distended colon and small bowel from an ileus or distal colon obstruction. PE: GEN: NAD - walking halls - returned to room and sat in recliner LUNGS: CTAB anteriorly HEART: mildly tachycardic ABD: more distended, few if any BS, diffuse discomfort NEURO/PSYCH: A & O 3 A/P: PVT - on Eliquis Abnormal CT - ill-definition of the pancreatic head and uncinate process with inflammatory stranding in the region Ileus -- Worse today. Continue NPO, recheck CT. Consider suppository. Justicifation of Admission Dx: Justifications for Admission: Justification of Admission Dx: Yes MARGE WILLIAM Jun 19, 2021 11:28
[2021-06-19] MEDS ORDERED: IOHEXOL 300 MG/ML 100ML VIAL. IV ONE (12:00)
[2021-06-19] MEDS ORDERED: CONTRAST GIVEN. MC PRN (12:15)
[2021-06-19] MEDS: IV NORMAL SALINE 1000ML BAG 1,000 ML IV SCH (13:30)
[2021-06-19 15:08] VITALS: BP 141/93
--- NOTE | 2021-06-19 16:24 | RAD ---
EXAM: CT ABDOMEN/PELVIS WITH CONTRAST. HISTORY: Ileus, abdominal distention. Portal vein thrombosis. TECHNIQUE: Computed tomography of the abdomen and pelvis was performed after the intravenous administ ration of Isovue-370. One or more of the following individualized dose reduction techniques were util ized for this examination: 1. Automated exposure control. 2. Adjustment of the mA and/or kV according to patient size. 3. Use of iterative reconstruction technique. COMPARISON: 06/14/2021. FINDINGS: Lung windows through the visualized portions of the bases reveal increased mild bibasilar a telectasis. Bone windows reveal no suspicious lesions. A ventriculoperitoneal shunt catheter has its tip in the right upper quadrant. There is trace ascites . The portal vein is thrombosed from the distal superior mesenteric vein throughout the right intrahepa tic portal tree. Portions of the left peripheral portal vein remain patent. There is some cavernous t ransformation. The liver, spleen, adrenal glands, and kidneys are unremarkable. Mild peripancreatic edema persists. There our no drainable collections. There are no pathologically enlarged lymph nodes. There is moderate diffuse colonic dilatation. The distal small bowel is also mild to moderately dilat ed. The proximal small bowel is not distended. The appendix is surgically absent. IMPRESSION: 1. Interval development of moderate colonic and small bowel distention, consistent with ileus. 2. Persistent portal vein thrombosis with early cavernous transformation. Electronically signed by: Adis Garcia MD (06/19/2021 4:22 PM) [id number]
[2021-06-19 19:00] VITALS: BP 142/94
[2021-06-19] MEDS: PATCH REMOVAL. MC SCH (21:00)
[2021-06-19] MEDS: LORazepam 0.5 MG TABLET PO PRN (21:20)
[2021-06-19] MEDS: PSYLLIUM HUSK (SUGAR FREE) 1 PKT PACKET PO SCH (21:20)
[2021-06-19] MEDS: ZOLPIDEM 5 MG TABLET. PO PRN (21:20)
[2021-06-19 23:16] VITALS: BP 131/91
[2021-06-20 03:27] VITALS: BP 135/98
[2021-06-20 07:00] VITALS: BP 146/92
--- NOTE | 2021-06-20 07:43 | PDOC ---
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 Patient had abdominal pain couple weeks ago that resolved spontaneously. There are no exacerbating or alleviating factors. Denies any weight loss, nausea vomiting, dysuria, hematuria, hematemesis, fevers or chills. He does endorse some chest pain that happened a couple weeks ago and resolved spontaneously as well. Denies any palpitations or syncope. His history of his DVT he thought might have been provoked by wrestling. He did have a tender calf pain at the time. He was treated for Xarelto for a year and stopped. He has not been anticoagulated since that time. 06/15: No acute events overnight. Patient continues to have abdominal pain and epigastric tenderness upon my exam. Patient required morphine this morning and has not had breakfast yet due to abdominal pain. Denies any bloody stools are given a bowel movement yet. Patient also complained of chest pain which I obtained an EKG this morning without any acute ST elevations or troponins that were elevated. We will plan to keep patient another day for pain control and general surgery evaluation. I will order a abdominal ultrasound duplex to evaluate flow through the portal vein. Note, lactic acid is normal. Discussed the case with vascular surgery they had recommended a general surgery consult because there was no surgical intervention from their standpoint except possibly stenting which can be done with interventional radiology. 06/16: Placed on morphine SOURCER due to severity of pain not controlled with frequent IV morphine. Took miralax for no BM for over 3 days. No SOB or CP. 06/17: Slept intermittently overnight. Ice pack helping with his back pain a sking for Lidoderm patch. No BM as of yet though he is passing flatus. Pain is still being controlled with SOURCER did not receive p.o. pain medication overnight. AFP is 1.7 CA 19-9 is 7, both negative. 06/18: Afebrile overnight. Having more gaseous distention and air pain. No BM still passing some flatus. Vomited x2.. KUB with ileus, simethicone and Relistor administration with 2 BM. Seen by oncology note protein C this Antithrombin III labs. Outpatient follow-up in 3-week plans 06/19: Despite BM overnight he still feeling very distended and bloated. Pain is still 7-8 out of 10. His back pain is now 6 out of 10 and he is walking to try to relieve it. Lidoderm patch was initially helping but now he does not feel it helping as much. CT abdomen pelvis confirms ileus no obstruction noted. Early cavernous transformation of portal venous thrombus Afebrile. Had a few BM overnight. When ambulating has some left lower quadrant pain. Had suppository this morning. Still with a fair amount of pain and gaseous distention still requiring morphine SOURCER Vitals/I&O Vitals/I&O: Vital Signs Date Time Temp Pulse Resp B/P (MAP) Pulse Ox O2 Delivery O2 Flow Rate FiO2 06/20/21 03:27 98.3 99 18 135/98 (110) 93 Room Air 98.3 I & O 06/19/21 06/19/21 06/20/21 15:00 23:00 07:00 Intake Total 0 ml 0 ml 0 ml Balance 0 ml 0 ml 0 ml Physical Exam General: Alert, Oriented X3, Cooperative, mild distress Heart: Regular rate Lungs: Clear Abdomen: Soft, Other (mild diffuse TTP) Extremities: No clubbing, No cyanosis Skin: No rashes, No breakdown Labs Labs: Laboratory Tests Test 06/19/21 07:40 White Blood Count 9.3 x10^3/uL (4.0-11.0) Red Blood Count 4.53 x10^6/uL (4.30-5.70) Hemoglobin 13.3 g/dL (13.0-17.5) Hematocrit 39.1 % (39.0-53.0) Mean Corpuscular Volume 86 fL (79-100) Mean Corpuscular Hemoglobin 29 pg (25-35) Mean Corpuscular Hemoglobin Concent 34 g/dL (31-37) Red Cell Distribution Width 13.8 % (11.5-14.5) Platelet Count 311 x10^3/uL (140-400) Sodium Level 133 mmol/L (136-145) Potassium Level 4.0 mmol/L (3.5-5.1) Chloride Level 98 mmol/L (98-107) Carbon Dioxide Level 30 mmol/L (21-32) Anion Gap 5 (6-14) Blood Urea Nitrogen 10 mg/dL (8-26) Creatinine 0.9 mg/dL (0.7-1.3) Estimated GFR (Cockcroft-Gault) 96.6 BUN/Creatinine Ratio 11 (6-20) Glucose Level 120 mg/dL (70-99) Calcium Level 8.6 mg/dL (8.5-10.1) Total Bilirubin 0.7 mg/dL (0.2-1.0) Aspartate Amino Transf (AST/SGOT) 19 U/L (15-37) Alanine Aminotransferase (ALT/SGPT) 35 U/L (16-63) Alkaline Phosphatase 78 U/L (46-116) Total Protein 7.9 g/dL (6.4-8.2) Albumin 3.5 g/dL (3.4-5.0) Albumin/Globulin Ratio 0.8 (1.0-1.7) Assessment and Plan Assessmemt and Plan Problems Medical Problems: (1) Back pain Status: Acute (2) Generalized abdominal pain Status: Acute (3) Portal vein thrombosis Status: Acute Comment Review of Relevant I have reviewed the following items eva (where applicable) has been applied. Medications: Current Medications Medications (Trade) Dose Ordered Sig/Ziyad Route PRN Reason Start Time Stop Time Status Last Admin Dose Admin Iohexol (Omnipaque 300 Mg/ml) 75 ml 1X ONCE IV 06/19/21 12:00 06/19/21 12:01 DC 06/19/21 13:55 Justifications for Admission Other Justification Portal vein thrombosis EDGARDO DUGGAN MD Jun 20, 2021 07:43
[2021-06-20] MEDS: POTASSIUM CL 20MEQ D5-0.45NACL 1,000 ML IV SCH ×3 (07:54→22:32)
[2021-06-20] MEDS ORDERED: BISACODYL 10 MG SUPP.RECT. PR ONE (09:30)
--- NOTE | 2021-06-20 09:40 | PDOC ---
Date of Service: DATE: 06/20/21 TIME: 09:34 Subjective: Subjective: Might feel a little better. Slept better than he has in awhile. Passed small amounts of stool and gas, also belching. Ongoing abdominal discomfort but might be slightly less bloated. Asks about advancing diet. Says LLQ is still sore from Relistor injection. Objective: Vital Signs: Vital Signs Date Time Temp Pulse Resp B/P (MAP) Pulse Ox O2 Delivery O2 Flow Rate FiO2 06/20/21 07:00 98.6 99 18 146/92 (110) 93 98.6 06/20/21 03:27 Room Air Imaging: CT A/P 06/19 FINDINGS: Lung windows through the visualized portions of the bases reveal increased mild bibasilar atelectasis. Bone windows reveal no suspicious lesions. A ventriculoperitoneal shunt catheter has its tip in the right upper quadrant. There is trace ascites. The portal vein is thrombosed from the distal superior mesenteric vein throu ghout the right intrahepatic portal tree. Portions of the left peripheral portal vein remain patent. There is some cavernous transformation. The liver, spleen, adrenal glands, and kidneys are unremarkable. Mild per ipancreatic edema persists. There our no drainable collections. There are no pathologically enlarged lymph nodes. There is moderate diffuse colonic dilatation. The distal small bowel is also mild to moderately dilated. The proximal small bowel is not distended. The appendix is surgically absent. IMPRESSION: 1. Interval development of moderate colonic and small bowel distention, consistent with ileus. 2. Persistent portal vein thrombosis with early cavernous transformation. PE: GEN: NAD LUNGS: CTAB HEART: RRR ABD: still distended - slight improvement? few tinkling bowel sounds NEURO/PSYCH: A & O 3 A/P: ?pancreatitis, ileus PVT, h/o DVT - on Eliquis, plans for outpt heme/onc follow-up -- Try suppository. Can try sips of water. Will review any additional recs w/ Dr. Lin. Justicifation of Admission Dx: Justifications for Admission: Justification of Admission Dx: Yes MARGE WILLIAM Jun 20, 2021 09:40
[2021-06-20] MEDS: APIXABAN 5 MG TABLET. PO SCH ×2 (10:14→22:29)
[2021-06-20] MEDS: FAMOTIDINE 20 MG/2 ML VIAL IVP SCH (10:14)
--- NOTE | 2021-06-20 10:45 | NUR ---
SW following. Discussed with RN, pt from home, room air, NPO. 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 RN advised no SW needs at this time. Pt not ready for discharge. SW will continue to follow.
[2021-06-20 11:00] VITALS: BP 142/92
[2021-06-20] MEDS: LIDOCAINE (700MG/PATCH) PATCH. TD SCH (11:24)
[2021-06-20] MEDS: LUBIPROSTONE 24 MCG CAPSULE PO SCH (12:17)
[2021-06-20] MEDS: IV NORMAL SALINE 1000ML BAG 1,000 ML IV SCH (13:30)
[2021-06-20 15:00] VITALS: BP 145/92
[2021-06-20 19:00] VITALS: BP 146/87
[2021-06-20] MEDS: PATCH REMOVAL. MC SCH (21:00)
[2021-06-20] MEDS: ZOLPIDEM 5 MG TABLET. PO PRN (22:29)
[2021-06-20] MEDS: LORazepam 0.5 MG TABLET PO PRN (22:29)
[2021-06-20] MEDS: PSYLLIUM HUSK (SUGAR FREE) 1 PKT PACKET PO SCH (22:29)
[2021-06-20] MEDS: SIMETHICONE 80 MG TAB.CHEW PO PRN (22:40)
[2021-06-20 23:00] VITALS: BP 141/99
[2021-06-21 03:00] VITALS: BP 126/92
[2021-06-21 07:00] VITALS: BP 130/94
[2021-06-21] MEDS: POTASSIUM CL 20MEQ D5-0.45NACL 1,000 ML IV SCH ×2 (08:27→20:07)
[2021-06-21] MEDS: LIDOCAINE (700MG/PATCH) PATCH. TD SCH (08:28)
[2021-06-21] MEDS: FAMOTIDINE 20 MG/2 ML VIAL IVP SCH (08:30)
[2021-06-21] MEDS: APIXABAN 5 MG TABLET. PO SCH ×2 (09:48→20:06)
[2021-06-21] MEDS: LUBIPROSTONE 24 MCG CAPSULE PO SCH (09:48)
[2021-06-21 11:00] VITALS: BP 145/103
[2021-06-21] MEDS: SIMETHICONE 80 MG TAB.CHEW PO PRN ×3 (11:35→20:06)
[2021-06-21] MEDS: IV NORMAL SALINE 1000ML BAG 1,000 ML IV SCH (13:30)
--- NOTE | 2021-06-21 13:48 | PDOC ---
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 Patient had abdominal pain couple weeks ago that resolved spontaneously. There are no exacerbating or alleviating factors. Denies any weight loss, nausea vomiting, dysuria, hematuria, hematemesis, fevers or chills. He does endorse some chest pain that happened a couple weeks ago and resolved spontaneously as well. Denies any palpitations or syncope. His history of his DVT he thought might have been provoked by wrestling. He did have a tender calf pain at the time. He was treated for Xarelto for a year and stopped. He has not been anticoagulated since that time. 06/15: No acute events overnight. Patient continues to have abdominal pain and epigastric tenderness upon my exam. Patient required morphine this morning and has not had breakfast yet due to abdominal pain. Denies any bloody stools are given a bowel movement yet. Patient also complained of chest pain which I obtained an EKG this morning without any acute ST elevations or troponins that were elevated. We will plan to keep patient another day for pain control and general surgery evaluation. I will order a abdominal ultrasound duplex to evaluate flow through the portal vein. Note, lactic acid is normal. Discussed the case with vascular surgery they had recommended a general surgery consult because there was no surgical intervention from their standpoint except possibly stenting which can be done with interventional radiology. 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 Took miralax for no BM for over 3 days. No SOB or CP. 06/17: Slept intermittently overnight. Ice pack helping with his back pain a sking for Lidoderm patch. No BM as of yet though he is passing flatus. Pain is still being controlled with PARTS TECHNICIAN did not receive p.o. pain medication overnight. AFP is 1.7 CA 19-9 is 7, both negative. 06/18: Afebrile overnight. Having more gaseous distention and air pain. No BM still passing some flatus. Vomited x2.. KUB with ileus, simethicone and Relistor administration with 2 BM. Seen by oncology note protein C this Antithrombin III labs. Outpatient follow-up in 3-week plans 06/19: Despite BM overnight he still feeling very distended and bloated. Pain is still 7-8 out of 10. His back pain is now 6 out of 10 and he is walking to try to relieve it. Lidoderm patch was initially helping but now he does not feel it helping as much. CT abdomen pelvis confirms ileus no obstruction noted. Early cavernous transformation of portal venous thrombus 06/20: Afebrile. Had a few BM overnight. When ambulating has some left lower quadrant pain. Had suppository this morning. Still with a fair amount of pain and gaseous distention still requiring morphine PARTS TECHNICIAN Afebrile. Small BM overnight. Passing flatus but still with significant gaseous distention and abdominal and back pain. Still requiring morphine PARTS TECHNICIAN Vitals/I&O Vitals/I&O: Vital Signs Date Time Temp Pulse Resp B/P (MAP) Pulse Ox O2 Delivery O2 Flow Rate FiO2 06/21/21 11:00 98.2 119 20 145/103 (117) 94 Room Air 98.2 I & O 06/20/21 06/20/21 06/21/21 15:00 23:00 07:00 Intake Total 0 ml 0 ml Balance 0 ml 0 ml Physical Exam General: Alert, Oriented X3, Cooperative, mild distress Heart: Regular rate Lungs: Clear Abdomen: Soft, Other (mild diffuse TTP) Extremities: No clubbing, No cyanosis Skin: No rashes, No breakdown Assessment and Plan Assessmemt and Plan Problems Medical Problems: (1) Back pain Status: Acute (2) Generalized abdominal pain Status: Acute (3) Portal vein thrombosis Status: Acute Comment Review of Relevant I have reviewed the following items eva (where applicable) has been applied. Justifications for Admission Other Justification Portal vein thrombosis EDGARDO DUGGAN MD Jun 21, 2021 13:48
[2021-06-21] MEDS: ANTI-COAG MONITOR BY PHARMACY. MC PRN (13:58)
[2021-06-21 15:00] VITALS: BP 136/90
[2021-06-21 19:52] VITALS: BP 131/89
[2021-06-21] MEDS: LORazepam 0.5 MG TABLET PO PRN (20:06)
[2021-06-21] MEDS: PSYLLIUM HUSK (SUGAR FREE) 1 PKT PACKET PO SCH (20:06)
[2021-06-21] MEDS: ZOLPIDEM 5 MG TABLET. PO PRN (20:06)
[2021-06-21] MEDS: PATCH REMOVAL. MC SCH (20:17)
[2021-06-21 23:38] VITALS: BP 131/83
[2021-06-22 03:57] VITALS: BP 148/90
[2021-06-22] MEDS: POTASSIUM CL 20MEQ D5-0.45NACL 1,000 ML IV SCH (05:05)
[2021-06-22 07:00] VITALS: BP 136/92
[2021-06-22] MEDS: FAMOTIDINE 20 MG/2 ML VIAL IVP SCH (09:11)
[2021-06-22] MEDS: LUBIPROSTONE 24 MCG CAPSULE PO SCH (09:11)
[2021-06-22] MEDS: APIXABAN 5 MG TABLET. PO SCH ×2 (09:11→21:21)
[2021-06-22] MEDS: LIDOCAINE (700MG/PATCH) PATCH. TD SCH (09:12)
[2021-06-22] MEDS: SIMETHICONE 80 MG TAB.CHEW PO PRN ×3 (10:26→17:38)
[2021-06-22 11:00] VITALS: BP 134/80
--- NOTE | 2021-06-22 12:18 | PDOC ---
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 Patient had abdominal pain couple weeks ago that resolved spontaneously. There are no exacerbating or alleviating factors. Denies any weight loss, nausea vomiting, dysuria, hematuria, hematemesis, fevers or chills. He does endorse some chest pain that happened a couple weeks ago and resolved spontaneously as well. Denies any palpitations or syncope. His history of his DVT he thought might have been provoked by wrestling. He did have a tender calf pain at the time. He was treated for Xarelto for a year and stopped. He has not been anticoagulated since that time. 06/15: No acute events overnight. Patient continues to have abdominal pain and epigastric tenderness upon my exam. Patient required morphine this morning and has not had breakfast yet due to abdominal pain. Denies any bloody stools are given a bowel movement yet. Patient also complained of chest pain which I obtained an EKG this morning without any acute ST elevations or troponins that were elevated. We will plan to keep patient another day for pain control and general surgery evaluation. I will order a abdominal ultrasound duplex to evaluate flow through the portal vein. Note, lactic acid is normal. Discussed the case with vascular surgery they had recommended a general surgery consult because there was no surgical intervention from their standpoint except possibly stenting which can be done with interventional radiology. 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 Took miralax for no BM for over 3 days. No SOB or CP. 06/17: Slept intermittently overnight. Ice pack helping with his back pain a sking for Lidoderm patch. No BM as of yet though he is passing flatus. Pain is still being controlled with FRONT END DEVELOPER JAVASCRIPT HTML CSS did not receive p.o. pain medication overnight. AFP is 1.7 CA 19-9 is 7, both negative. 06/18: Afebrile overnight. Having more gaseous distention and air pain. No BM still passing some flatus. Vomited x2.. KUB with ileus, simethicone and Relistor administration with 2 BM. Seen by oncology note protein C this Antithrombin III labs. Outpatient follow-up in 3-week plans 06/19: Despite BM overnight he still feeling very distended and bloated. Pain is still 7-8 out of 10. His back pain is now 6 out of 10 and he is walking to try to relieve it. Lidoderm patch was initially helping but now he does not feel it helping as much. CT abdomen pelvis confirms ileus no obstruction noted. Early cavernous transformation of portal venous thrombus 06/20: Afebrile. Had a few BM overnight. When ambulating has some left lower quadrant pain. Had suppository this morning. Still with a fair amount of pain and gaseous distention still requiring morphine FRONT END DEVELOPER JAVASCRIPT HTML CSS 06/21: Afebrile. Small BM overnight. Passing flatus but still with significant g aseous distention and abdominal and back pain. Still requiring morphine FRONT END DEVELOPER JAVASCRIPT HTML CSS Afebrile. Multiple soft stools overnight. Notes some of the consulting with cast. Less distended today. He is requesting advancing diet to GI soft to which I have available. Only used FRONT END DEVELOPER JAVASCRIPT HTML CSS once in the last 12 hours Vitals/I&O Vitals/I&O: Vital Signs Date Time Temp Pulse Resp B/P (MAP) Pulse Ox O2 Delivery O2 Flow Rate FiO2 06/22/21 11:00 98.6 94 18 134/80 (98) 96 Room Air 98.6 I & O 06/21/21 06/21/21 06/22/21 15:00 23:00 07:00 Intake Total 0 ml 0 ml Output Total 300 ml Balance 0 ml 0 ml -300 ml Physical Exam General: Alert, Oriented X3, Cooperative, mild distress Heart: Regular rate Lungs: Clear Abdomen: Soft, Other (mild diffuse TTP) Extremities: No clubbing, No cyanosis Skin: No rashes, No breakdown Assessment and Plan Assessmemt and Plan Problems Medical Problems: (1) Back pain Status: Acute (2) Generalized abdominal pain Status: Acute (3) Portal vein thrombosis Status: Acute Comment Review of Relevant I have reviewed the following items eva (where applicable) has been applied. Medications: Current Medications Medications (Trade) Dose Ordered Sig/Ziyad Route PRN Reason Start Time Stop Time Status Last Admin Dose Admin Apixaban (Eliquis) 5 mg BID PO 06/22/21 09:00 06/22/21 09:11 Justifications for Admission Other Justification Portal vein thrombosis EDGARDO DUGGAN MD Jun 22, 2021 12:18
[2021-06-22] MEDS: IV NORMAL SALINE 1000ML BAG 1,000 ML IV SCH (13:22)
[2021-06-22] MEDS: ANTI-COAG MONITOR BY PHARMACY. MC PRN (15:26)
[2021-06-22 15:34] VITALS: BP 134/85
[2021-06-22 19:00] VITALS: BP 131/82
[2021-06-22] MEDS: PATCH REMOVAL. MC SCH (21:00)
[2021-06-22] MEDS: HYDROcodone/APAP 5/325MG 1 TAB TABLET PO PRN (21:21)
[2021-06-22] MEDS: PSYLLIUM HUSK (SUGAR FREE) 1 PKT PACKET PO SCH (21:21)
[2021-06-22 23:25] VITALS: BP 128/74
[2021-06-23 03:15] VITALS: BP 114/69
[2021-06-23 07:00] VITALS: BP 141/96
[2021-06-23] MEDS: HYDROcodone/APAP 5/325MG 1 TAB TABLET PO PRN (07:13)
[2021-06-23] MEDS: LIDOCAINE (700MG/PATCH) PATCH. TD SCH (09:00)
[2021-06-23] MEDS ORDERED: LUBI24CA7 PO (10:01)
[2021-06-23] MEDS ORDERED: APIX5TAB PO (10:01)
[2021-06-23] MEDS ORDERED: PSYL3.4P PO (10:01)
[2021-06-23] MEDS ORDERED: HYDR-2761 PO (10:01)
--- NOTE | 2021-06-23 10:07 | PDOC3 ---
[facility]-Discharge Summary Date of Admission: Date of Admission: Jun 15, 2021 Date of Discharge: Date of Discharge: Jun 23, 2021 Admission Diagnosis: Problems: (1) Portal vein thrombosis (2) Back pain (3) Generalized abdominal pain Discharge Diagnosis: Discharge Diagnosis: Same Consults: Consults: GI, hematology Hospital Course: Hospital Course: Chief Complaint Acute abdominal pain secondary to portal vein thrombosis, possible pancreatitis Transaminitis Mild hyponatremia Obesity class I History of cerebral palsy, mild right sided deficits H/o RLE DVT Back pain - likely MSK plan: Protonix GI prophylaxis ADA diet CODE STATUS full Discussed with RN and SW Disposition inpatient management as above DPOA: Melly Nettles, parent History of Present Illness History of Present Illness 35-year-old male with past medical history of right DVT, 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 Patient had abdominal pain couple weeks ago that resolved spontaneously. There are no exacerbating or alleviating factors. Denies any weight loss, nausea vomiting, dysuria, hematuria, hematemesis, fevers or chills. He does endorse some chest pain that happened a couple weeks ago and resolved spontaneously as well. Denies any palpitations or syncope. His history of his DVT he thought might have been provoked by wrestling. He did have a tender calf pain at the time. He was treated for Xarelto for a year and stopped. He has not been anticoagulated since that time. 06/15: No acute events overnight. Patient continues to have abdominal pain and epigastric tenderness upon my exam. Patient required morphine this morning and has not had breakfast yet due to abdominal pain. Denies any bloody stools are given a bowel movement yet. Patient also complained of chest pain which I obtained an EKG this morning without any acute ST elevations or troponins that were elevated. We will plan to keep patient another day for pain control and general surgery evaluation. I will order a abdominal ultrasound duplex to e valuate flow through the portal vein. Note, lactic acid is normal. Discussed the case with vascular surgery they had recommended a general surgery consult because there was no surgical intervention from their standpoint except possibly stenting which can be done with interventional radiology. 06/16: Placed on morphine EXHAUST EMISSIONS INSPECTOR due to severity of pain not controlled with frequent IV morphine. Took miralax for no BM for over 3 days. No SOB or CP. 06/17: Slept intermittently overnight. Ice pack helping with his back pain asking for Lidoderm patch. No BM as of yet though he is passing flatus. Pain is still being controlled with EXHAUST EMISSIONS INSPECTOR did not receive p.o. pain medication overnight. AFP is 1.7 CA 19-9 is 7, both negative. 06/18: Afebrile overnight. Having more gaseous distention and air pain. No BM still passing some flatus. Vomited x2.. KUB with ileus, simethicone and Relistor administration with 2 BM. Seen by oncology note protein C this Antithrombin III labs. Outpatient follow-up in 3-week plans 06/19: Despite BM overnight he still feeling very distended and bloated. Pain is still 7-8 out of 10. His back pain is now 6 out of 10 and he is walking to try to relieve it. Lidoderm patch was initially helping but now he does not feel it helping as much. CT abdomen pelvis confirms ileus no obstruction noted. Early cavernous transformation of portal venous thrombus 06/20: Afebrile. Had a few BM overnight. When ambulating has some left lower quadrant pain. Had suppository this morning. Still with a fair amount of pain and gaseous distention still requiring morphine EXHAUST EMISSIONS INSPECTOR 06/21: Afebrile. Small BM overnight. Passing flatus but still with significant gaseous distention and abdominal and back pain. Still requiring morphine EXHAUST EMISSIONS INSPECTOR Afebrile. Multiple soft stools overnight. Notes some of the consulting with cast. Less distended today. He is requesting advancing diet to GI soft to whi ch I have available. Only used EXHAUST EMISSIONS INSPECTOR once in the last 12 hours 06/23. Patient evaluated and examined at bedside. Says he is doing well abdominal pain much more tolerable. Is having consistent bowel movements now. No longer on EXHAUST EMISSIONS INSPECTOR. Tolerating diet. Appropriate for discharge home today. Confirmed this with the GI team. Patient to follow-up with hematology in 3 weeks I spent approximately 35 minutes coordinating planning chart reviewing and [id number] with this patient regarding discharge. Spent approximately 16 minutes with the patient regarding advance care planning. Disposition: Disposition/Orders: D/C to Home Activity: Activity: Resume previous activity Diet: Diet: Regular Medications: Home Meds Active Scripts Psyllium Husk/Aspartame (METAMUCIL FIBER SINGLES PACKET) 3.4 Gm Powd.pack, 1 PKT PO QHS for constipation for 90 Days, #90 PKT Prov:EDGARDO RUIZ MD 06/23/21 Lubiprostone (AMITIZA) 24 Mcg Capsule, 24 MCG PO DAILY for constipation for 30 Days, #30 CAP Prov:EDGARDO RUIZ MD 06/23/21 Hydrocodone Bit/Acetaminophen (HYDROCODONE-APAP 5-325 ) 1 Tab Tablet, 1 TAB PO PRN Q4HRS PRN for MODERATE PAIN for 7 Days, #30 TAB Prov:EDGARDO RUIZ MD 06/23/21 Apixaban (ELIQUIS) 5 Mg Tablet, 5 MG PO BID for vte for 30 Days, #60 TAB 3 Refills Prov:EDGARDO RUIZ MD 06/23/21 Albuterol Sulfate (PROAIR HFA INHALER) 8.5 Gm Hfa.aer.ad, 1 PUFF INH PRN Q6HRS PRN for SHORTNESS OF BREATH, #1 INHALER 0 Refills Prov:CONNOR SÁNCHEZ FRAME NAILER 09/26/17 Discontinued Scripts Hydrocodone/Chlorphen Polis (HYDROCODONE-CHLORPHENIRAM SUSP) 5 Ml Mervat.er.12h, 5 ML PO PRN Q12HR PRN for COUGH, #120 ML 0 Refills Prov:CONNOR SÁNCHEZ FRAME NAILER 09/26/17 Oseltamivir Phosphate (TAMIFLU) 75 Mg Capsule, 1 CAP PO BID, #10 CAP Prov:CONNOR SÁNCHEZ FRAME NAILER 09/26/17 Scheduled Apixaban (Eliquis), 5 MG PO BID Lubiprostone (Amitiza), 24 MCG PO DAILY Psyllium Husk/Aspartame (Metamucil Fiber Singles Packet), 1 PKT PO QHS Scheduled PRN Albuterol Sulfate (Proair Hfa Inhaler), 1 PUFF INH PRN Q6HRS PRN for SHORTNESS OF BREATH Hydrocodone Bit/Acetaminophen (Hydrocodone-Apap 5-325 ), 1 TAB PO PRN Q4HRS PRN for MODERATE PAIN Discontinued Medications Hydrocodone/Chlorphen Polis (Hydrocodone-Chlorpheniram Susp), 5 ML PO PRN Q12HR PRN for COUGH Oseltamivir Phosphate (Tamiflu), 1 CAP PO BID Justicifation of Admission Dx: Justifications for Admission: Justification of Admission Dx: Yes EDGARDO RUIZ MD Jun 23, 2021 10:07
--- NOTE | 2021-06-23 10:43 | PDOC ---
Date of Service: DATE: 06/23/21 TIME: 10:40 Subjective: Subjective: In the shower - we spoke through the door - says he's feeling much better. Objective: Objective: D/w Dr. Mojica - stooling, tolerating diet, pain controlled/improved. Plans to DC today. We discussed could continue Amitiza vs Miralax or similar - call our office if recurrent problems with constipation. Vital Signs: Vital Signs Date Time Temp Pulse Resp B/P (MAP) Pulse Ox O2 Delivery O2 Flow Rate FiO2 06/23/21 07:00 98.1 101 21 141/96 (111) 96 98.1 06/23/21 03:15 Room Air PE: GEN: in shower as above A/P: ?pancreatitis Ileus - resolved PVT, h/o DVT - on Eliquis, plans for outpt heme/onc follow-up -- Improved. DC per primary. Justicifation of Admission Dx: Justifications for Admission: Justification of Admission Dx: Yes MARGE WILLIAM Jun 23, 2021 10:43
[2021-06-23 11:00] VITALS: BP 129/83
[2021-06-23] MEDS: LUBIPROSTONE 24 MCG CAPSULE PO SCH (11:04)
[2021-06-23] MEDS: APIXABAN 5 MG TABLET. PO SCH (11:04)
[2021-06-23] MEDS: FAMOTIDINE 20 MG/2 ML VIAL IVP SCH (11:04)
--- NOTE | 2021-06-23 14:13 | NUR ---
SW following. Discharge order for home with self care. No SW needs identified.
--- NOTE | 2021-06-23 14:35 | NUR ---
DISCHARGE INSTRUCTIONS GIVEN, QUESTIONS AND CONCERNS ANSWERED, PATIENT VERBALIZED UNDERSTANDING OF DISCHARGE INFORMATION INCLUDING TAKING ALL MEDICATIONS INSTRUCTED AND FOLLOWING UP WITH HIS PRIMARY PROVIDER IN 1-2 WEEKS, ALL PERSONAL BELONGINGS GATHERED BY THE PATIENT AND PLACED IN BAGS FOR DISCHARGE.
--- NOTE | 2021-06-23 14:50 | NUR ---
PATIENT AMBULATES OFF THE UNIT ALONGSIDE THE MUSIC INTERN, EMOTIONAL SUPPORT GIVEN, F/U APPOINTMENTS ENCOURAGED.
[2021-06-29 07:54] LABS: ANTITHROMBIN III SEE SEPARATE REPORT
[2021-06-29 07:55] LABS: CARDIOLIPIN ANTIBODIES SEE SEPARATE REPORT; LUPUS ANTICOAGULANT SEE SEPARATE REPORT; PROTEIN C ACTIVITY SEE SEPARATE REPORT; PROTEIN S ACTIVITY SEE SEPARATE REPORT
== END 2021-06-23 14:50 | disposition home or self-care (01) | DRG 441 ==
LOC: ER 04:50 → 5 NORTH 08:39 → OBSVTOIN 06-15 11:31
PROVIDERS: ADMIT Internal Medicine; ATTEND Internal Medicine
DX: I81 Portal vein thrombosis (principal); K85.90 Acute pancreatitis without necrosis or infection, unspecified; E87.1 Hypo-osmolality and hyponatremia; J98.11 Atelectasis; K56.7 Ileus, unspecified; E66.9 Obesity, unspecified; G80.8 Other cerebral palsy; Z79.01 Long term (current) use of anticoagulants; Z86.718 Personal history of other venous thrombosis and embolism; Z90.49 Acquired absence of other specified parts of digestive tract; Z98.2 Presence of cerebrospinal fluid drainage device; R74.01 Elevation of levels of liver transaminase levels; Z68.30 Body mass index [BMI] 30.0-30.9, adult
CPT/HCPCS: 36415; 74018; 74177; 80048; 80053; 80061; 80076; 81001; 82105; 82784; 82787; 83605; 83690; 83735; 84100; 84484; 85025; 85027; 85300; 85302; 85306; 85520; 85610; 86140; 86146; 86147; 86301; 93005; 93976; 96374; 96375; G0378; G0379; J0780; J1644; J2212; J2270; J2405; J3010; J3480; J3490; J7030; Q9967; 99285-25

== ENCOUNTER → 2021-07-15 | Outpatient (CLI) | payer OTHER ==
[2021-06-23 11:00] VITALS: BP 129/83
[~2021-07-15] MED LIST changes: +APIX5TAB PO; +HYDR-2761 PO; +LUBI24CA7 PO; +PSYL3.4P PO
[2021-07-15 09:45] LABS: BASO % 1 % (0-3); EOS # 0.2 x10^3/uL (0.0-0.7); EOS % 5 % (0-3); HEMATOCRIT 42.1 % (39.0-53.0); HEMOGLOBIN 14.3 g/dL (13.0-17.5); LYMPH # 1.9 x10^3/uL (1.0-4.8); LYMPH % 37 % (24-48); MEAN CORPUSCULAR HEMOGLOBIN 29 pg (25-35); MEAN CORPUSCULAR HGB CONC 34 g/dL (31-37); MEAN CORPUSCULAR VOLUME 85 fL (79-100); MONO # 0.5 x10^3/uL (0.0-1.1); MONO % 10 % (0-9); NEUT # 2.4 x10^3/uL (1.8-7.7); NEUT % 47 % (31-73); PLATELET COUNT 158 x10^3/uL (140-400); RED BLOOD COUNT 4.97 x10^6/uL (4.30-5.70); RED CELL DISTRIBUTION WIDTH 14.6 % (11.5-14.5); WHITE BLOOD COUNT 5.1 x10^3/uL (4.0-11.0)
== END ==
LOC: ONCLAB 09:16
PROVIDERS: ATTEND Internal Medicine Hematology & Oncology
DX: I81 Portal vein thrombosis (principal)
CPT/HCPCS: 36415; 81240; 81241; 85025

== ENCOUNTER → 2021-07-22 | Outpatient (CLI) | payer OTHER ==
[2021-06-23 11:00] VITALS: BP 129/83
[2021-07-22 09:35] LABS: PROTHROMBIN TIME PATIENT 18.3 SEC (11.7-14.0)
== END ==
LOC: ONCLAB 08:31
PROVIDERS: ATTEND Internal Medicine Hematology & Oncology
DX: I81 Portal vein thrombosis (principal)
CPT/HCPCS: 36415; 85610

== ENCOUNTER → 2021-07-25 | Outpatient (CLI) | payer OTHER | LOC: ONCLAB 08:44 | PROVIDERS: ATTEND Internal Medicine Hematology & Oncology | DX: I81 Portal vein thrombosis (principal) | CPT/HCPCS: 36415; 85610 ==

== ENCOUNTER → 2021-07-29 | Outpatient (CLI) | payer OTHER ==
[2021-07-29 08:50] LABS: PROTHROMBIN TIME PATIENT 30.9 SEC (11.7-14.0)
== END ==
LOC: ONCLAB 08:16
PROVIDERS: ATTEND Internal Medicine Hematology & Oncology
DX: I81 Portal vein thrombosis (principal)
CPT/HCPCS: 36415; 85610

== ENCOUNTER → 2021-08-05 | Outpatient (CLI) | payer OTHER ==
[2021-08-05 09:11] LABS: PROTHROMBIN TIME PATIENT 37.8 SEC (11.7-14.0)
== END ==
LOC: ONCLAB 08:20
PROVIDERS: ATTEND Internal Medicine Hematology & Oncology
DX: I81 Portal vein thrombosis (principal)
CPT/HCPCS: 36415; 85610

== ENCOUNTER → 2021-08-12 | Outpatient (CLI) | payer OTHER ==
[2021-08-12 08:52] LABS: PROTHROMBIN TIME PATIENT 24.9 SEC (11.7-14.0)
== END ==
LOC: ONCLAB 08:02
PROVIDERS: ATTEND Internal Medicine Hematology & Oncology
DX: I81 Portal vein thrombosis (principal)
CPT/HCPCS: 36415; 85610

== ENCOUNTER → 2021-08-19 | Outpatient (CLI) | payer OTHER ==
[2021-08-19 08:38] LABS: PROTHROMBIN TIME PATIENT 23.9 SEC (11.7-14.0)
== END ==
LOC: ONCLAB 08:02
PROVIDERS: ATTEND Internal Medicine Hematology & Oncology
DX: I81 Portal vein thrombosis (principal)
CPT/HCPCS: 36415; 85610

== ENCOUNTER → 2021-08-26 | Outpatient (CLI) | payer OTHER ==
[2021-08-26 11:08] LABS: BASO % 0 % (0-3); CREATININE 0.8 mg/dL (0.7-1.3); EOS # 0.2 x10^3/uL (0.0-0.7); EOS % 4 % (0-3); HEMATOCRIT 43.4 % (39.0-53.0); HEMOGLOBIN 14.5 g/dL (13.0-17.5); LYMPH # 1.7 x10^3/uL (1.0-4.8); LYMPH % 33 % (24-48); MEAN CORPUSCULAR HEMOGLOBIN 28 pg (25-35); MEAN CORPUSCULAR HGB CONC 34 g/dL (31-37); MEAN CORPUSCULAR VOLUME 84 fL (79-100); MONO # 0.6 x10^3/uL (0.0-1.1); MONO % 11 % (0-9); NEUT # 2.8 x10^3/uL (1.8-7.7); NEUT % 52 % (31-73); PLATELET COUNT 146 x10^3/uL (140-400); POTASSIUM 4.3 mmol/L (3.5-5.1); RED BLOOD COUNT 5.18 x10^6/uL (4.30-5.70); RED CELL DISTRIBUTION WIDTH 16.4 % (11.5-14.5); WHITE BLOOD COUNT 5.3 x10^3/uL (4.0-11.0)
[2021-08-26 11:39] LABS: PROTHROMBIN TIME PATIENT 22.3 SEC (11.7-14.0)
== END ==
LOC: ONCLAB 10:38
PROVIDERS: ATTEND Physician Assistant
DX: I81 Portal vein thrombosis (principal)
CPT/HCPCS: 36415; 80048; 85025; 85610

== ENCOUNTER → 2021-09-02 | Outpatient (CLI) | payer OTHER ==
[2021-09-02 08:57] LABS: PROTHROMBIN TIME PATIENT 23.2 SEC (11.7-14.0)
== END ==
LOC: ONCLAB 08:35
PROVIDERS: ATTEND Internal Medicine Hematology & Oncology
DX: I81 Portal vein thrombosis (principal)
CPT/HCPCS: 36415; 85610

== ENCOUNTER → 2021-09-09 | Outpatient (CLI) | payer OTHER ==
[2021-09-09 08:47] LABS: PROTHROMBIN TIME PATIENT 21.2 SEC (11.7-14.0)
== END ==
LOC: ONCLAB 08:11
PROVIDERS: ATTEND Internal Medicine Hematology & Oncology
DX: I81 Portal vein thrombosis (principal)
CPT/HCPCS: 36415; 85610

== ENCOUNTER → 2021-09-16 | Outpatient (CLI) | payer OTHER ==
[2021-09-16 08:38] LABS: PROTHROMBIN TIME PATIENT 23.9 SEC (11.7-14.0)
== END ==
LOC: ONCLAB 08:06
PROVIDERS: ATTEND Internal Medicine Hematology & Oncology
DX: I81 Portal vein thrombosis (principal)
CPT/HCPCS: 85610; 86146; 86147

== ENCOUNTER → 2021-09-23 | Outpatient (CLI) | payer OTHER ==
[2021-09-23 08:32] LABS: PROTHROMBIN TIME PATIENT 24.1 SEC (11.7-14.0)
== END ==
LOC: ONCLAB 07:59
PROVIDERS: ATTEND Internal Medicine Hematology & Oncology
DX: I81 Portal vein thrombosis (principal)
CPT/HCPCS: 36415; 85610

== ENCOUNTER → 2021-09-30 | Outpatient (CLI) | payer OTHER ==
[2021-09-30 09:25] LABS: PROTHROMBIN TIME PATIENT 27.7 SEC (11.7-14.0)
== END ==
LOC: ONCLAB 08:03
PROVIDERS: ATTEND Internal Medicine Hematology & Oncology
DX: I81 Portal vein thrombosis (principal)
CPT/HCPCS: 36415; 85610

== ENCOUNTER → 2021-10-07 | Outpatient (CLI) | payer OTHER ==
[2021-10-07 10:13] LABS: PROTHROMBIN TIME PATIENT 27.8 SEC (11.7-14.0)
== END ==
LOC: ONCLAB 08:14
PROVIDERS: ATTEND Internal Medicine Hematology & Oncology
DX: I81 Portal vein thrombosis (principal)
CPT/HCPCS: 36415; 85610

== ENCOUNTER → 2021-10-14 | Outpatient (CLI) | payer OTHER ==
[2021-10-14 09:11] LABS: PROTHROMBIN TIME PATIENT 24.9 SEC (11.7-14.0)
== END ==
LOC: ONCLAB 08:08
PROVIDERS: ATTEND Internal Medicine Hematology & Oncology
DX: I81 Portal vein thrombosis (principal)
CPT/HCPCS: 36415; 85610

== ENCOUNTER → 2021-10-21 | Outpatient (CLI) | payer OTHER ==
[2021-10-21 08:40] LABS: PROTHROMBIN TIME PATIENT 25.8 SEC (11.7-14.0)
== END ==
LOC: ONCLAB 08:12
PROVIDERS: ATTEND Internal Medicine Hematology & Oncology
DX: I81 Portal vein thrombosis (principal)
CPT/HCPCS: 36415; 85610

== ENCOUNTER → 2021-10-28 | Outpatient (CLI) | payer OTHER ==
[~2021-10-28] MED LIST changes: +IOHEXOL 300 MG/ML 100ML VIAL. IV ONE
--- NOTE | 2021-10-28 09:16 | RAD ---
INDICATION: Reason: Portal venous thrombosis, pancreatitis / Spl. Instructions: IV omni 300 75 mls / History: COMPARISON: June 2021 TECHNIQUE: Axial CT images were obtained through the abdomen with intravenous contrast. One or more of the following individualized dose reduction techniques were utilized for this examinat ion: 1. Automated exposure control; 2. Adjustment of the mA and/or kV according to patient size; 3 . Use of iterative reconstruction technique. FINDINGS: Vascular: The overall amount of thrombus within the portal vein appears decreased from prior with par tial filling defect persisting. Partial cavernous transformation. Hepatobiliary: Portal vein thrombus extends into the liver as well. Pancreas: Fullness of the pancreas with mild edema to the adjacent fat. Spleen: Spleen is enlarged. Renal: No hydronephrosis. Gastrointestinal: Mild colonic diverticulosis partially seen. Shunt with tip at the anterior aspect o f the abdomen just deep to the rectus musculature. Degenerative changes of spine, mild. IMPRESSION: * Interval decrease in size of portal vein thrombosis with a small amount persisting. There is also partial cavernous transformation of the portal vein. * Fullness of the pancreas with some haziness of the adjacent fat. Could be some residual inflammati on from pancreatitis. * Splenomegaly. Electronically signed by: Aaron Baron MD (10/28/2021 9:13 AM) [id number]
== END ==
LOC: CT 08:09
PROVIDERS: ATTEND Internal Medicine Hematology & Oncology
DX: I81 Portal vein thrombosis (principal); R16.1 Splenomegaly, not elsewhere classified; K57.30 Diverticulosis of large intestine without perforation or abscess without bleeding; M47.819 Spondylosis without myelopathy or radiculopathy, site unspecified
CPT/HCPCS: 74160; Q9967

== ENCOUNTER → 2021-11-04 | Outpatient (CLI) | payer OTHER ==
[~2021-11-04] MED LIST changes: -IOHEXOL 300 MG/ML 100ML VIAL. IV ONE
[2021-11-04 08:47] LABS: PROTHROMBIN TIME PATIENT 29.9 SEC (11.7-14.0)
== END ==
LOC: ONCLAB 08:04
PROVIDERS: ATTEND Internal Medicine Hematology & Oncology
DX: I81 Portal vein thrombosis (principal)
CPT/HCPCS: 36415; 85610

== ENCOUNTER → 2021-11-18 | Outpatient (CLI) | payer OTHER ==
[2021-11-18 08:44] LABS: PROTHROMBIN TIME PATIENT 23.8 SEC (11.7-14.0)
== END ==
LOC: ONCLAB 08:04
PROVIDERS: ATTEND Internal Medicine Hematology & Oncology
DX: I81 Portal vein thrombosis (principal)
CPT/HCPCS: 36415; 85610

== ENCOUNTER → 2021-12-02 | Outpatient (CLI) | payer OTHER ==
[2021-12-02 08:56] LABS: PROTHROMBIN TIME PATIENT 32.6 SEC (11.7-14.0)
== END ==
LOC: ONCLAB 08:01
PROVIDERS: ATTEND Internal Medicine Hematology & Oncology
DX: I81 Portal vein thrombosis (principal)
CPT/HCPCS: 36415; 85610

== ENCOUNTER → 2021-12-09 | Outpatient (CLI) | payer OTHER ==
[2021-12-09 09:16] LABS: PROTHROMBIN TIME PATIENT 24.9 SEC (11.7-14.0)
== END ==
LOC: ONCLAB 08:08
PROVIDERS: ATTEND Internal Medicine Hematology & Oncology
DX: I81 Portal vein thrombosis (principal)
CPT/HCPCS: 36415; 85610

== ENCOUNTER → 2021-12-23 | Outpatient (CLI) | payer OTHER ==
[2021-12-23 08:55] LABS: PROTHROMBIN TIME PATIENT 36.2 SEC (11.7-14.0)
== END ==
LOC: ONCLAB 08:01
PROVIDERS: ATTEND Internal Medicine Hematology & Oncology
DX: I81 Portal vein thrombosis (principal)
CPT/HCPCS: 36415; 85610

== ENCOUNTER → 2021-12-30 | Outpatient (CLI) | payer OTHER ==
[2021-12-30 08:47] LABS: PROTHROMBIN TIME PATIENT 26.3 SEC (11.7-14.0)
== END ==
LOC: ONCLAB 08:02
PROVIDERS: ATTEND Internal Medicine Hematology & Oncology
DX: I81 Portal vein thrombosis (principal)
CPT/HCPCS: 36415; 85610

== ENCOUNTER → 2022-01-13 | Outpatient (CLI) | payer OTHER ==
[2022-01-13 09:06] LABS: PROTHROMBIN TIME PATIENT 28.7 SEC (11.7-14.0)
== END ==
LOC: ONCLAB 08:03
PROVIDERS: ATTEND Internal Medicine Hematology & Oncology
DX: I81 Portal vein thrombosis (principal)
CPT/HCPCS: 36415; 85610

== ENCOUNTER → 2022-01-27 | Outpatient (CLI) | payer OTHER ==
[2022-01-27 09:30] LABS: PROTHROMBIN TIME PATIENT 34.4 SEC (11.7-14.0)
== END ==
LOC: ONCLAB 08:08
PROVIDERS: ATTEND Internal Medicine Hematology & Oncology
DX: I81 Portal vein thrombosis (principal)
CPT/HCPCS: 36415; 85610

== ENCOUNTER → 2022-02-03 | Outpatient (CLI) | payer OTHER ==
[2022-02-03 11:04] LABS: PROTHROMBIN TIME PATIENT 27.6 SEC (11.7-14.0)
== END ==
LOC: ONCLAB 10:26
PROVIDERS: ATTEND Internal Medicine Hematology & Oncology
DX: I81 Portal vein thrombosis (principal)
CPT/HCPCS: 36415; 85610